=== PATIENT | male | born 1935 | race Caucasian/White ===

== ENCOUNTER 2017-10-29 19:23 | Inpatient (IN) ==
--- NOTE | 2017-10-29 20:35 | Emergency Department Note ---
Disposition Clinical Impression: Pneumonia Disposition: Admitted As Inpatient Condition: Fair Referrals: Verna Marie, [employer]ER [Primary Care Provider] - Forms: ED Satisfaction Letter Time of Disposition: 21:53 SOB HPI - General Chief Complaint: ED Shortness of Breath/Dyspnea Stated Complaint: "shallow breathing, low O2, very weak" Time Seen by Provider: 10/29/17 20:31 Source: patient Nursing Notes Reviewed: Yes Vital Signs Reviewed: Yes - History of Present Illness Patient is an 82-year-old male with past medical history of COPD, CVA, hypertension, TIA, CK D, type 2 diabetes mellitus that presents for shortness of breath for one day. Patient says that he has noticed an increase in coughing and shortness of breath starting earlier today. He admits to a clear productive cough. He normally has wheezing but says he denies any increase in wheezing recently. He admits to a fever of 101 earlier this afternoon. He denies any nausea, vomiting, diarrhea, or constipation. Patient uses oxygen at home only at night. He denies any swelling or chest pain. Patient also says that he slipped in the living room today and hit his head on the ground. He denies any loss of consciousness. Denies any headaches. Patient only on low dose aspirin for blood thinner. He denies any slurring of speech or focal deficits. - Related Data Home Medications Medication Instructions Recorded Confirmed Albuterol Sulfate [Albuterol 2 puff IH Q4HR PRN 04/01/15 04/12/17 Inhaler] Ascorbic Acid [Vitamin C] 500 mg PO QAM 04/01/15 04/12/17 Aspirin 81 mg PO QAM 04/01/15 04/12/17 Atorvastatin [Lipitor] 10 mg PO QPM 04/01/15 04/12/17 BuPROPion [Wellbutrin] 75 mg PO QAM 04/01/15 04/12/17 Cholecalciferol (Vitamin D3) 1,000 unit PO QAM 04/01/15 04/12/17 [Vitamin D] Citalopram [CeleXA] 20 mg PO QAM 04/01/15 04/12/17 Docusate [Colace] 100 mg PO QAM 04/01/15 04/12/17 Krill Oil 500 mg PO DAILY 04/01/15 04/12/17 Metoprolol [Lopressor] 25 mg PO QPM 04/01/15 04/12/17 Multivitamin/Iron/Folic Acid 1 each PO QAM 04/01/15 04/12/17 [Centrum Complete Multivit Tab] Omeprazole [PriLOSEC] 20 mg PO QAM 04/01/15 04/12/17 Saccharomyces Boulardii [Probiotic] 250 mg PO DAILY 04/01/15 04/12/17 Vitamin B Complex [B Complex] 1 each PO DAILY 04/01/15 04/12/17 Sitagliptin Phosphate [Januvia] 50 mg PO DAILY 04/12/17 04/12/17 Mometasone/Formoterol [Dulera 100 2 puff IH BID 04/13/17 04/13/17 Mcg/5 Mcg Inhaler] Previous Rx's Medication Instructions Recorded GuaiFENesin ER [Mucinex] 1,200 mg PO BID #20 tbbp.12hr 05/31/16 Ertapenem [INVanz] 500 mg IVPB DAILY #8 vial 04/19/17 Allergies Allergy/AdvReac Type Severity Reaction Status Date / Time No Known Allergies Allergy Verified 10/29/17 19:27 Review of Systems: As Per HPI Constitutional: Reports: fever. Denies: chills Cardiovascular: Denies: chest pain, palpitations, dyspnea on exertion, edema, syncope Respiratory: Reports: cough, dyspnea. Denies: wheezes Gastrointestinal: Denies: abdominal pain, nausea, vomiting, diarrhea, constipation, hematemesis, melena, hematochezia Past Medical History - Past Medical History Medical history: Reports: COPD, CVA, hyperlipidemia, hypertension, TIA, other Surgical history: Reports: appendectomy, cholecystectomy, other (POONAM Lobectomy) Psychiatric history: Reports: depression - Social History Smoking Status: Former smoker Smokeless Tobacco Status: No Alcohol use: Reports: none Drug use: Reports: none Physical Exam - General General appearance: alert, in no apparent distress - Head Head exam: atraumatic, normocephalic, normal inspection - Chest Chest inspection: Present: normal inspection, symmetric chest wall rise - Respiratory Respiratory exam: Present: normal lung sounds bilaterally. Absent: respiratory distress, wheezes - Cardiovascular Cardiovascular exam: Present: regular rate, normal rhythm, normal heart sounds, +S1, +S2. Absent: +S3, +S4 - Abdominal Exam Abdominal exam: Present: soft, Non-Tender, normal bowel sounds. Absent: tenderness, distention, guarding, rebound, rigidity - Extremities Exam Extremities exam: Present: normal inspection, full ROM, normal capillary refill. Absent: tenderness, pedal edema, calf tenderness - Neurological Exam Neurological exam: Present: alert, oriented X3, CN II-XII intact, reflexes normal. Absent: motor sensory deficit Course Course Narrative: Chest X-Ray 10/29/17 19:27 IMPRESSION: Stable right infrahilar consolidative and left base ill-defined opacities concerning for residual or recurrent pneumonia. D/ / Arben Wilson / Arben Wilson Interpreting Provider: Arben Wilson showed no acute changes from previous one. Tropnin not elevated. BMP only mildly elevated. Patient displayed no swelling on exam. CHF exacerbation unlikely. No wheezing was appreciated on exam so COPD exacerbation unlikely. Patient's chest x-ray shows concern for residual or recurrent pneumonia. He reported a fever of 101 earlier today. He has been coughing with productive sputum. White blood cell count was elevated at 25 and lactate was elevated at 2.5. Patient was last hospitalized for pneumonia in April of that showed positive culture for Proteus mirabilis. Patient had to be discharged with ertapenem. Sensitivities showed patient was sensitive to Zosyn. Given his chest x-ray results as well as an elevated white blood cell count and lactate patient will be given a dose of Zosyn and Levaquin for PNA. Sputum cultures have been ordered. Patient displayed no bruising and had. He denied any headaches. Cranial nerves II through XII were intact. No focal deficits were appreciated. Strength testing was normal. Spoke to hospitalist who agreed to admit the patient. Vital Signs Temperature 99.7 F H 10/29/17 19:25 Pulse Rate 107 10/29/17 19:25 Respiratory Rate 16 10/29/17 19:25 Blood Pressure 154/74 10/29/17 19:25 O2 Sat by Pulse Oximetry 98 10/29/17 19:25 Temperature 98.8 F 10/29/17 21:16 Pulse Rate 80 10/29/17 21:16 Respiratory Rate 22 10/29/17 21:16 Blood Pressure 172/85 10/29/17 21:16 O2 Sat by Pulse Oximetry 97 10/29/17 21:16 Oxygen Delivery Oxygen Delivery Nasal Cannula Shortness of Breath/Dyspnea - Lab Data Result diagrams: 10/29/17 20:37 10/29/17 20:37 Lab Results 10/29/17 10/29/17 10/29/17 Range/Units 20:37 20:37 20:37 WBC 23.5 H (4.3-11.1) K/mcL RBC 5.21 (4.19-5.50) M/mcL Hgb 16.9 (12.9-16.9) g/dL Hct 49.5 (37.5-50.1) % MCV 95.0 (83.0-100.0) fL MCH 32.4 (28.0-33.3) pg MCHC 34.1 (31.6-35.5) g/dL RDW 12.9 (11.5-14.5) % Plt Count 174 (140-400) K/mcL MPV 10.5 (9.4-12.4) fL Immature Gran % 0.6 (0-4) % Seg Neutrophils % 87.2 % Lymphocytes % 6.4 % Monocytes % 5.5 % Eosinophils % 0.1 % Basophils % 0.2 % Neutrophils # 20.5 H (1.6-8.9) K/mcL Lymphocytes # 1.5 (0.6-4.6) K/mcL Monocytes # 1.3 (0.0-1.3) K/mcL Eosinophils # 0.0 (0.0-0.6) K/mcL Basophils # 0.0 (0.0-0.2) K/mcL Sodium 139 (136-145) mEq/L Potassium 5.4 H (3.5-5.1) mEq/L Chloride 105 (98-107) mEq/L Carbon Dioxide 26 (23-29) mEq/L BUN 26 H (8-23) mg/dL Creatinine 2.17 H (0.70-1.30) mg/dL Est GFR ( Amer) 36 L (> 60) Est GFR (Non-Af Amer) 29 L (> 60) BUN/Creatinine Ratio 12 (6-26) Glucose 326 H (70-105) mg/dL Calculated Osmolality 305 H (280-300) Lactic Acid 2.5 H (0.5-2.2) mmol/L Calcium 9.5 (8.6-10.3) mg/dL Troponin I < 0.03 (< 0.04) ng/mL B-Natriuretic Peptide (Less than 100) pg/mL 10/29/17 Range/Units 20:37 WBC (4.3-11.1) K/mcL RBC (4.19-5.50) M/mcL Hgb (12.9-16.9) g/dL Hct (37.5-50.1) % MCV (83.0-100.0) fL MCH (28.0-33.3) pg MCHC (31.6-35.5) g/dL RDW (11.5-14.5) % Plt Count (140-400) K/mcL MPV (9.4-12.4) fL Immature Gran % (0-4) % Seg Neutrophils % % Lymphocytes % % Monocytes % % Eosinophils % % Basophils % % Neutrophils # (1.6-8.9) K/mcL Lymphocytes # (0.6-4.6) K/mcL Monocytes # (0.0-1.3) K/mcL Eosinophils # (0.0-0.6) K/mcL Basophils # (0.0-0.2) K/mcL Sodium (136-145) mEq/L Potassium (3.5-5.1) mEq/L Chloride (98-107) mEq/L Carbon Dioxide (23-29) mEq/L BUN (8-23) mg/dL Creatinine (0.70-1.30) mg/dL Est GFR ( Amer) (> 60) Est GFR (Non-Af Amer) (> 60) BUN/Creatinine Ratio (6-26) Glucose (70-105) mg/dL Calculated Osmolality (280-300) Lactic Acid (0.5-2.2) mmol/L Calcium (8.6-10.3) mg/dL Troponin I (< 0.04) ng/mL B-Natriuretic Peptide 130 H (Less than 100) pg/mL - EKG Data EKG attestation: Yes I reviewed and interpreted this EKG. EKG shows normal: Reports: sinus rhythm Rate: Reports: normal Rhythm: Reports: PAC's Orient/QRS: Reports: left axis deviation, RBBB
[2017-10-29 20:54] LABS: Basophils % 0.2 %; Eosinophils % 0.1 %; Hematocrit 49.5 % (37.5-50.1); Hemoglobin 16.9 g/dL (12.9-16.9); Immature Granulocytes % 0.6 % (0-4); Lymphocytes # 1.5 K/mcL (0.6-4.6); Lymphocytes % 6.4 %; Mean Corpuscular HGB Conc 34.1 g/dL (31.6-35.5); Mean Corpuscular Hemoglobin 32.4 pg (28.0-33.3); Mean Platelet Volume 10.5 fL (9.4-12.4); Monocytes # 1.3 K/mcL (0.0-1.3); Monocytes % 5.5 %; Neutrophils # 20.5 K/mcL (1.6-8.9); Platelet Count 174 K/mcL (140-400); Red Blood Count 5.21 M/mcL (4.19-5.50); Red Cell Distribution Width 12.9 % (11.5-14.5); Segmented Neutrophils % 87.2 %
[2017-10-29 21:13] LABS: BUN/Creatinine Ratio 12 (6-26); Blood Urea Nitrogen 26 mg/dL (8-23); Calcium 9.5 mg/dL (8.6-10.3); Carbon Dioxide 26 mEq/L (23-29); Chloride 105 mEq/L (98-107); Glucose 326 mg/dL (70-105); Osmolality,Calculated 305 (280-300); Potassium 5.4 mEq/L (3.5-5.1); Sodium 139 mEq/L (136-145); eGFR For African Americans 36 (> 60); eGFR For Non-African Americans 29 (> 60)
[2017-10-29 21:14] LABS: Troponin I < 0.03 ng/mL (< 0.04)
[2017-10-29] MEDS ORDERED: Piperacillin/Tazobactam 3.375 GM in 0.9 % Sodium Chloride Mini Bag 100 ML IVPB ONE (21:16)
[2017-10-29] MEDS ORDERED: Levofloxacin 750 MG/150 ML 750 MG/150 ML BAG IVPB ONE (21:18)
[2017-10-29] MEDS ORDERED: 0.9 % Sodium Chloride 1,000 ML IVC ONE (21:36)
[2017-10-29] MEDS ORDERED: Acetylcysteine 10% 2 ML INHSOL IH ONE (21:37)
--- NOTE | 2017-10-29 22:17 | Internal Med History&Physical ---
Date of Encounter: 10/29/17 Time of Encounter: 22:14 Assessment and Plan (1) Pneumonia Current visit: Yes Status: Acute Patient with the community acquired pneumonia was not hospital recently so for now we will cover with [facility] Qualifiers: Pneumonia type: due to unspecified organism Laterality: bilateral Lung location: lower lobe of lung Qualified Code(s): J18.1 - Lobar pneumonia, unspecified organism (2) COPD (chronic obstructive pulmonary disease) Current visit: No Status: Acute Chronic we will resume DuoNeb treatment no active wheezing at present Qualifiers: COPD type: COPD with acute exacerbation Qualified Code(s): J44.1 - Chronic obstructive pulmonary disease with (acute) exacerbation (3) History of lung cancer Current visit: No Status: Chronic (4) Hyperglycemia due to type 2 diabetes mellitus Current visit: No Status: Chronic Diabetes with hyperglycemia resume home medication and place on gentle hydration and sliding scale Qualifiers: Diabetes mellitus care home insulin use: without watermelon inspector use Qualified Code(s): E11.65 - Type 2 diabetes mellitus with hyperglycemia (5) HLD (hyperlipidemia) Current visit: No Status: Chronic Qualifiers: Hyperlipidemia type: mixed hyperlipidemia Qualified Code(s): E78.2 - Mixed hyperlipidemia (6) HTN (hypertension) Current visit: No Status: Chronic Chronic now well controlled we will resume home medication and make some adjustment Qualifiers: Hypertension type: essential hypertension Qualified Code(s): I10 - Essential (primary) hypertension Internal Medicine - H&P: HPI Chief complaint: sob and productive cough Admitted From: Emergency Dept Plans for Post Hospital Care: Home History of present illness: Mr. Grider is a 82 year old male Patient with history of COPD, CVA, diabetes, high cholesterol, hypertension, TIA , CK D, lung cancer and smoking history. Patient had recent admission with the pneumonia and respiratory failure. Patient presented with 1 day of increased shortness of breath , productive cough fever up to 101 and came into the emergency room. Her chest x-ray suggestive of right residual infiltrate and then new left basilar infiltrate WBC was 23,000 patient appears comfortable been admitted for treatment of pneumonia. Hemodynamically stable no chest pain also been having increased wheezing Past Med Surg Social Fam HX - Past Medical History Medical history: COPD, CVA, hyperlipidemia, hypertension, TIA, other Psychiatric history: depression - Past Surgical History Surgical History: appendectomy, cholecystectomy, other (POONAM Lobectomy) - Social History Smoking Status: Former smoker Smokeless Tobacco Status: No Alcohol use: none Drug use: none - Family History Mother Living Status: Hx Family Cardiac Disorders: No Hx Family Respiratory Disorders: No Hx Family Cancer: Yes (Bladder) Hx Family GI Disorders: No Hx Family Endocrine Disorder: No Hx Family Neuromuscular Disorders: No Hx Family Neurologic Disorders: No Hx Family HEENT Disorders: No Hx Family Autoimmune Disorders: No Father Adopted: No Family Member Ethnicity: Non- Living Status: Hx Family Cardiac Disorders: No Hx Family Respiratory Disorders: No Hx Family Cancer: Yes (lung) Hx Family GI Disorders: No Hx Family Endocrine Disorder: No Hx Family Neuromuscular Disorders: No Hx Family Neurologic Disorders: No Hx Family HEENT Disorders: No Hx Family Autoimmune Disorders: No Internal Medicine - H&P: Meds Albuterol Sulfate [Albuterol Inhaler] 2 puff IH Q4HR PRN 04/01/15 [History] Ascorbic Acid [Vitamin C] 500 mg PO QAM 04/01/15 [History] Aspirin 81 mg PO QAM 04/01/15 [History] Atorvastatin [Lipitor] 10 mg PO QPM 04/01/15 [History] BuPROPion [Wellbutrin] 75 mg PO QAM 04/01/15 [History] Cholecalciferol (Vitamin D3) [Vitamin D] 1,000 unit PO QAM 04/01/15 [History] Citalopram [CeleXA] 20 mg PO QAM 04/01/15 [History] Docusate [Colace] 100 mg PO QAM 04/01/15 [History] Krill Oil 500 mg PO DAILY 04/01/15 [History] Metoprolol [Lopressor] 25 mg PO QPM 04/01/15 [History] Multivitamin/Iron/Folic Acid [Centrum Complete Multivit Tab] 1 each PO QAM 04/01 [History] Omeprazole [PriLOSEC] 20 mg PO QAM 04/01/15 [History] Saccharomyces Boulardii [Probiotic] 250 mg PO DAILY 04/01/15 [History] Vitamin B Complex [B Complex] 1 each PO DAILY 04/01/15 [History] GuaiFENesin ER [Mucinex] 1,200 mg PO BID #20 tbbp.12hr 05/31/16 [Rx] Sitagliptin Phosphate [Januvia] 50 mg PO DAILY 04/12/17 [History] Mometasone/Formoterol [Dulera 100 Mcg/5 Mcg Inhaler] 2 puff IH BID 04/13/17 [ History] Ertapenem [INVanz] 500 mg IVPB DAILY #8 vial 04/19/17 [Rx] 3 Allergy/AdvReac Type Severity Reaction Status Date / Time No Known Allergies Allergy Verified 10/29/17 19:27 All Systems PM: A 10-system review of systems was performed and is negative for pertinent findings except as documented above in the HPI. - Constitutional Constitutional: as per HPI - EENT Eyes: no change in vision, no discharge, no pain, no photophobia Ears: no ear discharge, no ear pain, no tinnitus Nose, mouth and throat: no dysphagia, no nasal discharge, no neck pain, no sore throat - Cardiovascular Cardiovascular ROS IM: dyspnea, dyspnea on exertion - Respiratory Respiratory: cough, dyspnea, dyspnea on exertion, wheezing - Gastrointestinal Gastrointestinal: no abdominal pain, no diarrhea, no hematemesis, no hematochezia, no melena, no nausea, no vomiting - Musculoskeletal Musculoskeletal ROS IM: no numbness, no tingling - Constitutional Vitals: Temp Pulse Resp BP Pulse Ox 98.8 F 80 22 172/85 97 10/29/17 21:16 10/29/17 21:16 10/29/17 21:16 10/29/17 21:16 10/29/17 21:16 General appearance: Present: mild distress - Eye Eye exam: Present: PERRL, conjuntiva pink, sclera anicteric Pupils: Present: PERRL - Respiratory Respiratory exam: Present: decreased breath sounds, prolonged expiratory phase, wheezes - Cardiovascular Cardiovascular exam: Present: RRR, +S1, +S2. Absent: diastolic murmur, gallop, rubs, systolic murmur - GI/Abdominal GI/Abdominal exam: Present: normal bowel sounds, soft, no peritoneal signs. Absent: distended, tenderness - Extremities Exam Extremities exam: Present: warm, radial pulses palpable and symmetrical. Absent : calf tenderness, cyanotic, pedal edema Internal Med - H&P Results - Labs CBC & Chem 7: 10/29/17 20:37 10/29/17 20:37 Labs: Short CBC 10/29/17 Range/Units 20:37 WBC 23.5 H (4.3-11.1) K/mcL Hgb 16.9 (12.9-16.9) g/dL Hct 49.5 (37.5-50.1) % Plt Count 174 (140-400) K/mcL Neutrophils # 20.5 H (1.6-8.9) K/mcL BMP 10/29/17 20:37 Sodium 139 Potassium 5.4 H Chloride 105 Carbon Dioxide 26 BUN 26 H Creatinine 2.17 H Glucose 326 H Calcium 9.5 Cardiac Enzymes 10/29/17 Range/Units 20:37 Troponin I < 0.03 (< 0.04) ng/mL - Impressions ITS Impressions Chest X-Ray 10/29/17 19:27 IMPRESSION: Stable right infrahilar consolidative and left base ill-defined opacities concerning for residual or recurrent pneumonia. D/ / Arben Wilson / Arben Wilson Interpreting Provider: Arben Wilson
[2017-10-29] MEDS ORDERED: traMADol 50 MG TABLET PO PRN (22:23)
[2017-10-29] MEDS ORDERED: Acetaminophen 325 MG TABLET PO PRN (22:23)
[2017-10-29] MEDS ORDERED: Naloxone 0.4 MG/ML INJ IVP PRN (22:23)
[2017-10-29] MEDS ORDERED: 0.9 % Sodium Chloride 1,000 ML IVC SCH (22:30)
--- NOTE | 2017-10-29 22:44 | Emergency Department Note ---
Disposition Clinical Impression: Pneumonia Qualifiers: Pneumonia type: due to unspecified organism Laterality: bilateral Lung location : lower lobe of lung Qualified Code(s): J18.1 - Lobar pneumonia, unspecified organism Disposition: Admitted As Inpatient Condition: Fair General Adult HPI - General Chief complaint: ED Shortness of Breath/Dyspnea Stated complaint: "shallow breathing, low O2, very weak" Time Seen by Provider: 10/29/17 20:31 Source: patient Nursing Notes Reviewed: Yes Vital Signs Reviewed: Yes - History of Present Illness Pain Scale: 0 - Related Data Home Medications Medication Instructions Recorded Confirmed Albuterol Sulfate [Albuterol 2 puff IH Q4HR PRN 04/01/15 04/12/17 Inhaler] Ascorbic Acid [Vitamin C] 500 mg PO QAM 04/01/15 04/12/17 Aspirin 81 mg PO QAM 04/01/15 04/12/17 Atorvastatin [Lipitor] 10 mg PO QPM 04/01/15 04/12/17 BuPROPion [Wellbutrin] 75 mg PO QAM 04/01/15 04/12/17 Cholecalciferol (Vitamin D3) 1,000 unit PO QAM 04/01/15 04/12/17 [Vitamin D] Citalopram [CeleXA] 20 mg PO QAM 04/01/15 04/12/17 Docusate [Colace] 100 mg PO QAM 04/01/15 04/12/17 Krill Oil 500 mg PO DAILY 04/01/15 04/12/17 Metoprolol [Lopressor] 25 mg PO QPM 04/01/15 04/12/17 Multivitamin/Iron/Folic Acid 1 each PO QAM 04/01/15 04/12/17 [Centrum Complete Multivit Tab] Omeprazole [PriLOSEC] 20 mg PO QAM 04/01/15 04/12/17 Saccharomyces Boulardii [Probiotic] 250 mg PO DAILY 04/01/15 04/12/17 Vitamin B Complex [B Complex] 1 each PO DAILY 04/01/15 04/12/17 Sitagliptin Phosphate [Januvia] 50 mg PO DAILY 04/12/17 04/12/17 Mometasone/Formoterol [Dulera 100 2 puff IH BID 04/13/17 04/13/17 Mcg/5 Mcg Inhaler] Previous Rx's Medication Instructions Recorded GuaiFENesin ER [Mucinex] 1,200 mg PO BID #20 tbbp.12hr 05/31/16 Ertapenem [INVanz] 500 mg IVPB DAILY #8 vial 04/19/17 Allergies Allergy/AdvReac Type Severity Reaction Status Date / Time No Known Allergies Allergy Verified 10/29/17 19:27 Constitutional: Reports: fever. Denies: chills Cardiovascular: Denies: chest pain, palpitations, dyspnea on exertion, edema, syncope Respiratory: Reports: cough, dyspnea. Denies: wheezes Gastrointestinal: Denies: abdominal pain, nausea, vomiting, diarrhea, constipation, hematemesis, melena, hematochezia Past Medical History - Past Medical History Medical history: Reports: COPD, CVA, hyperlipidemia, hypertension, TIA, other Surgical history: Reports: appendectomy, cholecystectomy, other (POONAM Lobectomy) Psychiatric history: Reports: depression - Social History Smoking Status: Former smoker Smokeless Tobacco Status: No Alcohol use: Reports: none Drug use: Reports: none Physical Exam - General General appearance: alert, in no apparent distress Course Vital Signs Temperature 99.7 F H 10/29/17 19:25 Pulse Rate 107 10/29/17 19:25 Respiratory Rate 16 10/29/17 19:25 Blood Pressure 154/74 10/29/17 19:25 O2 Sat by Pulse Oximetry 98 10/29/17 19:25 Temperature 98.8 F 10/29/17 21:16 Pulse Rate 80 10/29/17 21:16 Respiratory Rate 22 10/29/17 21:16 Blood Pressure 172/85 10/29/17 21:16 O2 Sat by Pulse Oximetry 97 10/29/17 21:16 Oxygen Delivery Oxygen Delivery Nasal Cannula Medical Decision Making - Lab Data Result diagrams: 10/29/17 20:37 10/29/17 20:37 Lab Results 10/29/17 10/29/17 10/29/17 Range/Units 20:37 20:37 20:37 WBC 23.5 H (4.3-11.1) K/mcL RBC 5.21 (4.19-5.50) M/mcL Hgb 16.9 (12.9-16.9) g/dL Hct 49.5 (37.5-50.1) % MCV 95.0 (83.0-100.0) fL MCH 32.4 (28.0-33.3) pg MCHC 34.1 (31.6-35.5) g/dL RDW 12.9 (11.5-14.5) % Plt Count 174 (140-400) K/mcL MPV 10.5 (9.4-12.4) fL Immature Gran % 0.6 (0-4) % Seg Neutrophils % 87.2 % Lymphocytes % 6.4 % Monocytes % 5.5 % Eosinophils % 0.1 % Basophils % 0.2 % Neutrophils # 20.5 H (1.6-8.9) K/mcL Lymphocytes # 1.5 (0.6-4.6) K/mcL Monocytes # 1.3 (0.0-1.3) K/mcL Eosinophils # 0.0 (0.0-0.6) K/mcL Basophils # 0.0 (0.0-0.2) K/mcL Sodium 139 (136-145) mEq/L Potassium 5.4 H (3.5-5.1) mEq/L Chloride 105 (98-107) mEq/L Carbon Dioxide 26 (23-29) mEq/L BUN 26 H (8-23) mg/dL Creatinine 2.17 H (0.70-1.30) mg/dL Est GFR ( Amer) 36 L (> 60) Est GFR (Non-Af Amer) 29 L (> 60) BUN/Creatinine Ratio 12 (6-26) Glucose 326 H (70-105) mg/dL Calculated Osmolality 305 H (280-300) Lactic Acid 2.5 H (0.5-2.2) mmol/L Calcium 9.5 (8.6-10.3) mg/dL Troponin I < 0.03 (< 0.04) ng/mL B-Natriuretic Peptide (Less than 100) pg/mL 10/29/17 Range/Units 20:37 WBC (4.3-11.1) K/mcL RBC (4.19-5.50) M/mcL Hgb (12.9-16.9) g/dL Hct (37.5-50.1) % MCV (83.0-100.0) fL MCH (28.0-33.3) pg MCHC (31.6-35.5) g/dL RDW (11.5-14.5) % Plt Count (140-400) K/mcL MPV (9.4-12.4) fL Immature Gran % (0-4) % Seg Neutrophils % % Lymphocytes % % Monocytes % % Eosinophils % % Basophils % % Neutrophils # (1.6-8.9) K/mcL Lymphocytes # (0.6-4.6) K/mcL Monocytes # (0.0-1.3) K/mcL Eosinophils # (0.0-0.6) K/mcL Basophils # (0.0-0.2) K/mcL Sodium (136-145) mEq/L Potassium (3.5-5.1) mEq/L Chloride (98-107) mEq/L Carbon Dioxide (23-29) mEq/L BUN (8-23) mg/dL Creatinine (0.70-1.30) mg/dL Est GFR ( Amer) (> 60) Est GFR (Non-Af Amer) (> 60) BUN/Creatinine Ratio (6-26) Glucose (70-105) mg/dL Calculated Osmolality (280-300) Lactic Acid (0.5-2.2) mmol/L Calcium (8.6-10.3) mg/dL Troponin I (< 0.04) ng/mL B-Natriuretic Peptide 130 H (Less than 100) pg/mL Attestation Statement - Attestation Attestation: I examined this patient and my medical decision-making was reviewed with the Resident Physician. I agree with the documented findings, disposition and treatment plan as described except to the extent set forth below. 82-year-old male brought to the ED because of generalized weakness, fever, cough and dyspnea. Symptoms have been evolved into the day today. Weakness is worsened to the point recent falling. Dyspnea his been an issue but not progressing. He was admitted to the hospital in April and found to have Proteus in his sputum. This was sensitive only to IV medications including Zosyn and ertrepenam. He was discharged home for hospital with a PICC line and given ertapenem. He has done well since that time. He denies vomiting or diarrhea. No abdominal pain. No chest pain. Pleasant elderly male in no apparent distress. Oropharynx clear moist membranes slightly dry. Neck is supple. Chest exam with diminished breath sounds bilaterally. No focal consolidation is appreciated. Chest wall nontender. Abdomen soft nondistended nontender. Extremities warm and dry. Chest x-ray consistent with bilateral infiltrates. Leukocytosis with white count 23,000. Given his evolving weakness he will be admitted to the hospital on IV . antibioticsHe is given initial dose of Zosyn in the emergency department.
[2017-10-30 04:22] LABS: Hematocrit 45.3 % (37.5-50.1); Mean Corpuscular HGB Conc 33.8 g/dL (31.6-35.5); Mean Corpuscular Hemoglobin 32.1 pg (28.0-33.3); Mean Platelet Volume 10.2 fL (9.4-12.4); Platelet Count 186 K/mcL (140-400); Red Blood Count 4.77 M/mcL (4.19-5.50); Red Cell Distribution Width 12.9 % (11.5-14.5)
[2017-10-30 04:25] LABS: Hemoglobin 15.3 g/dL (12.9-16.9)
[2017-10-30 04:45] LABS: Albumin/Globulin Ratio 1.4 (1.1-2.2); Bilirubin,Total 0.7 mg/dL (0.3-1.0); Calcium 8.9 mg/dL (8.6-10.3); Chol/HDL Ratio 2.6 (0-4.9); Globulin 2.8 g/dL (2.4-3.5); Magnesium 1.7 mg/dL (1.6-2.6); Potassium 4.6 mEq/L (3.5-5.1); Total Protein 6.8 g/dL (6.4-8.9)
[2017-10-30] MEDS: *HR* Enoxaparin 40 MG/0.4 ML SYRINGE SQ SCH (06:35)
[2017-10-30] MEDS: Budesonide/Formoterol 80/4.5 MDI IH SCH ×2 (07:29→19:25)
[2017-10-30] MEDS ORDERED: KRILL OIL 500 MG PO SCH (09:00)
[2017-10-30] MEDS ORDERED: D5% in Water 1,000 ML IVC PRN (09:08)
[2017-10-30] MEDS ORDERED: *HR* Dextrose 50 % in Water (Syg) 50 ML SYRINGE IVP PRN (09:08)
[2017-10-30] MEDS ORDERED: Dextrose Gel 15 GM/37.5 ML TUBE PO PRN ×2 (09:08)
[2017-10-30] MEDS: Piperacillin/Tazobactam 3.375 GM in 0.9 % Sodium Chloride Mini Bag 100 ML IVPB SCH ×2 (09:12→15:37)
[2017-10-30] MEDS: Lactobacillus 1 EACH CAP.SPRINK PO SCH (09:13)
[2017-10-30] MEDS: Vitamin B Complex/Vit C/Vit E 1 EACH TABLET PO SCH (09:13)
[2017-10-30] MEDS: Aspirin 81 MG TAB.CHEW PO SCH (09:14)
[2017-10-30] MEDS: *HR* SitaGLIPtin 25 MG TABLET PO SCH (09:14)
[2017-10-30] MEDS: Ascorbic Acid 500 MG TABLET PO SCH (09:14)
[2017-10-30] MEDS: Multivit/Ca/Min/Fe/FA 1 TAB TABLET PO SCH (09:14)
[2017-10-30] MEDS: Cholecalciferol (D-3) 1,000 UNIT TABLET PO SCH (09:14)
[2017-10-30 09:27] LABS: Estimated Average Glucose 177 mg/dl; Hemoglobin A1C 7.8 %
--- NOTE | 2017-10-30 11:38 | Internal Med Progress Note ---
Date of Encounter: 10/30/17 Time of Encounter: 11:20 - Assessment and plan (1) Community acquired pneumonia Current Visit: Yes Status: Acute Assessment and plan: Patient was admitted for pneumonia, his last admission was May 2017. continue zosyn and levofloxacin will DC IV fluids He is currently on 4 L nasal cannula oxygen, weaning oxygen Possible discharge tomorrow if able to wean oxygen Qualifiers: Laterality: unspecified laterality Qualified Code(s): J18.9 - Pneumonia, unspecified organism (2) COPD (chronic obstructive pulmonary disease) Current Visit: Yes Status: Chronic Assessment and plan: COPD on 2 L nasal cannula at night, quitted smoking 10 years ago. No signs for acute exacerbation Qualifiers: COPD type: COPD with acute exacerbation Qualified Code(s): J44.1 - Chronic obstructive pulmonary disease with (acute) exacerbation (3) CKD (chronic kidney disease), stage III Current Visit: Yes Status: Chronic Assessment and plan: CK D stages 3 creatinine stable (4) Hyperglycemia due to type 2 diabetes mellitus Current Visit: Yes Status: Chronic Assessment and plan: Diabetes type 2 we will continue home medication and on sliding scale Qualifiers: Diabetes mellitus usp insulin use: without usp use Qualified Code(s): E11.65 - Type 2 diabetes mellitus with hyperglycemia (5) History of lung cancer Current Visit: No Status: Chronic (6) History of CVA (cerebrovascular accident) Current Visit: Yes Status: Chronic - Time Spent With Patient Greater than 35 minutes - Subjective Interval history: Patient with history of COPD, CVA, diabetes, high cholesterol, hypertension, TIA , CK D, lung cancer and smoking history. last admission was 04/2017, Patient presented with 1 day of increased shortness of breath , productive cough fever up to 101 and came into the emergency room. Her chest x-ray suggestive of right residual infiltrate and then new left basilar infiltrate WBC was 23 ,000 patient appears comfortable been admitted for treatment of pneumonia. Hemodynamically stable no chest pain also been having increased wheezing. Patient was admitted for pneumonia, he was on 2 L NC at night at home for COPD, now he is on 4 L NC Patient is doing better, afebrile, WBC trending down, he feels better with shortness of breath. Patient lives at home with his pretty much homebound. We will consult PT and OT - Constitutional Vitals: Temp Pulse Resp BP Pulse Ox 98.3 F 62 20 136/84 98 10/30/17 10:50 10/30/17 10:50 10/30/17 10:50 10/30/17 10:50 10/30/17 10:50 General appearance: Present: mild distress, A&O X 3, pleasant Exam: CONSTITUTIONAL: patient appears as an age appropriate male in no acute distress. EYES Clear sclerae, bilateral pupils are equal, reactive to light. EMOI. RESPIRATORY: No accessory muscle use, bilateral reduced BS, scant wheezing, no crackles/rales. CARDIOVASCULAR: Regular heart rate, normal S1 and S2, no murmurs GASTROINTESTINAL: bowel sounds present, soft, no tenderness. MUSCULOSKELETAL: Joints in normal range of motion, no clubbing, no edema, no cyanosis. Bilateral peripheral pulses 2+. NEUROLOGIC: CN II to XII are grossly intact, no focal neurological deficit. Internal Medicine: Result - Labs CBC & Chem 7: 10/30/17 04:04 10/30/17 04:04 Labs: Short CBC 10/30/17 Range/Units 04:04 WBC 18.3 H (4.3-11.1) K/mcL Hgb 15.3 D (12.9-16.9) g/dL Hct 45.3 (37.5-50.1) % Plt Count 186 (140-400) K/mcL BMP 10/30/17 04:04 Sodium 142 Potassium 4.6 Chloride 107 Carbon Dioxide 26 BUN 24 H Creatinine 1.97 H Glucose 155 H Calcium 8.9 Liver Function 10/30/17 Range/Units 04:04 Total Bilirubin 0.7 (0.3-1.0) mg/dL AST 15 (13-39) Units/L ALT 18 (7-52) Units/L Alkaline Phosphatase 73 (34-104) Units/L Albumin 4.0 (3.5-5.7) g/dL Consult Discharge Plan - Plan Referrals: Verna Marie, NIGHT ORDER SELECTOR [Primary Care Provider] -
[2017-10-30] MEDS: Insulin LISPRO 300 UNITS/3 ML VIAL SQ SCH ×3 (12:57→21:00)
[2017-10-30] MEDS ORDERED: Levofloxacin 750 MG/150 ML 750 MG/150 ML BAG IVPB SCH ×2 (21:00)
[2017-10-31] MEDS: Piperacillin/Tazobactam 3.375 GM in 0.9 % Sodium Chloride Mini Bag 100 ML IVPB SCH ×4 (00:30→23:45)
[2017-10-31 06:15] LABS: Basophils % 0.2 %; Eosinophils # 0.1 K/mcL (0.0-0.6); Eosinophils % 0.7 %; Hematocrit 42.8 % (37.5-50.1); Hemoglobin 14.4 g/dL (12.9-16.9); Immature Granulocytes % 0.5 % (0-4); Lymphocytes # 1.6 K/mcL (0.6-4.6); Lymphocytes % 11.9 %; Mean Corpuscular HGB Conc 33.6 g/dL (31.6-35.5); Mean Corpuscular Hemoglobin 32.1 pg (28.0-33.3); Mean Corpuscular Volume 95.3 fL (83.0-100.0); Mean Platelet Volume 10.6 fL (9.4-12.4); Monocytes # 1.1 K/mcL (0.0-1.3); Monocytes % 7.9 %; Neutrophils # 10.4 K/mcL (1.6-8.9); Platelet Count 161 K/mcL (140-400); Red Blood Count 4.49 M/mcL (4.19-5.50); Red Cell Distribution Width 12.9 % (11.5-14.5); Segmented Neutrophils % 78.8 %
[2017-10-31] MEDS: *HR* Enoxaparin 40 MG/0.4 ML SYRINGE SQ SCH (06:21)
[2017-10-31 06:34] LABS: Calcium 9.1 mg/dL (8.6-10.3); Magnesium 1.7 mg/dL (1.6-2.6); Potassium 4.6 mEq/L (3.5-5.1)
[2017-10-31] MEDS: Budesonide/Formoterol 80/4.5 MDI IH SCH ×2 (07:51→20:31)
[2017-10-31] MEDS: Insulin LISPRO 300 UNITS/3 ML VIAL SQ SCH ×4 (08:02→20:56)
[2017-10-31] MEDS: Cholecalciferol (D-3) 1,000 UNIT TABLET PO SCH (08:45)
[2017-10-31] MEDS: Aspirin 81 MG TAB.CHEW PO SCH (08:45)
[2017-10-31] MEDS: *HR* SitaGLIPtin 25 MG TABLET PO SCH (08:45)
[2017-10-31] MEDS: Ascorbic Acid 500 MG TABLET PO SCH (08:45)
[2017-10-31] MEDS: Vitamin B Complex/Vit C/Vit E 1 EACH TABLET PO SCH (08:46)
[2017-10-31] MEDS: Lactobacillus 1 EACH CAP.SPRINK PO SCH (08:46)
[2017-10-31] MEDS: Multivit/Ca/Min/Fe/FA 1 TAB TABLET PO SCH (08:46)
[2017-10-31] MEDS ORDERED: Ondansetron 4 MG/2 ML VIAL IVP PRN (10:38)
--- NOTE | 2017-10-31 17:27 | Internal Med Progress Note ---
Date of Encounter: 10/31/17 Time of Encounter: 11:00 - Assessment and plan (1) Community acquired pneumonia Current Visit: Yes Status: Acute Assessment and plan: Leukocytosis improving and patient afebrile on day 3 of 7 on IV Zosyn/Levaquin Continue current medical management Qualifiers: Laterality: unspecified laterality Qualified Code(s): J18.9 - Pneumonia, unspecified organism (2) COPD (chronic obstructive pulmonary disease) Current Visit: Yes Status: Chronic Assessment and plan: Patient with no audible wheezing on exam Continue home dose of Symbicort Qualifiers: COPD type: COPD with acute exacerbation Qualified Code(s): J44.1 - Chronic obstructive pulmonary disease with (acute) exacerbation (3) CKD (chronic kidney disease), stage III Current Visit: Yes Status: Chronic Assessment and plan: Stable; creatinine at baseline Continue to monitor (4) DMII (diabetes mellitus, type 2) Current Visit: No Status: Chronic Assessment and plan: Blood glucose controlled; continue sliding scale insulin Qualifiers: Diabetes mellitus intermediate accountant insulin use: unspecified jail insulin use status Qualified Code(s): E11.9 - Type 2 diabetes mellitus without complications (5) GERD (gastroesophageal reflux disease) Current Visit: No Status: Chronic Assessment and plan: Continue home dose of PPI Qualifiers: Esophagitis presence: esophagitis presence not specified Qualified Code(s) : K21.9 - Gastro-esophageal reflux disease without esophagitis (6) HLD (hyperlipidemia) Current Visit: No Status: Chronic Assessment and plan: Continue statin Qualifiers: Hyperlipidemia type: mixed hyperlipidemia Qualified Code(s): E78.2 - Mixed hyperlipidemia (7) HTN (hypertension) Current Visit: No Status: Chronic Assessment and plan: Controlled; continue beta ritchie Qualifiers: Hypertension type: essential hypertension Qualified Code(s): I10 - Essential (primary) hypertension (8) DVT prophylaxis Current Visit: No Status: Acute Assessment and plan: Subcutaneous Lovenox - Time Spent With Patient Total time spent is greater than 50% in coordination of care (as documented) at patient's floor/unit and/or counseling patient: - Subjective Interval history: Patient with improving leukocytosis with treatment for pneumonia on IV Zosyn/ Levaquin PT/OT recommendations for SNF placement - Constitutional Vitals: Temp Pulse Resp BP Pulse Ox 97.7 F 83 20 139/57 97 10/31/17 15:26 10/31/17 15:26 10/31/17 15:26 10/31/17 15:26 10/31/17 15:26 General appearance: Present: mild distress, A&O X 3, pleasant, no acute distress - Respiratory Respiratory exam: Present: CTAB. Absent: accessory muscle use, rales, rhonchi, wheezes - Cardiovascular Cardiovascular exam: Present: RRR, +S1, +S2. Absent: diastolic murmur, gallop, rubs, systolic murmur - GI/Abdominal GI/Abdominal exam: Present: normal bowel sounds, soft, no peritoneal signs. Absent: distended, tenderness Internal Medicine: Result - Labs CBC & Chem 7: 10/31/17 05:41 10/31/17 05:41 Labs: Short CBC 10/31/17 Range/Units 05:41 WBC 13.2 H (4.3-11.1) K/mcL Hgb 14.4 (12.9-16.9) g/dL Hct 42.8 (37.5-50.1) % Plt Count 161 (140-400) K/mcL Neutrophils # 10.4 H (1.6-8.9) K/mcL BMP 10/31/17 05:41 Sodium 142 Potassium 4.6 Chloride 110 H Carbon Dioxide 27 BUN 21 Creatinine 2.00 H Glucose 119 H Calcium 9.1 Consult Discharge Plan - Plan Referrals: Verna Marie, BATCH ATTENDANT [Primary Care Provider] -
[2017-11-01] MEDS: *HR* Enoxaparin 40 MG/0.4 ML SYRINGE SQ SCH (05:44)
[2017-11-01] MEDS: Insulin LISPRO 300 UNITS/3 ML VIAL SQ SCH ×4 (07:01→20:42)
[2017-11-01] MEDS: Budesonide/Formoterol 80/4.5 MDI IH SCH ×2 (07:31→21:36)
[2017-11-01 08:45] LABS: Calcium 9.5 mg/dL (8.6-10.3); Potassium 4.3 mEq/L (3.5-5.1)
[2017-11-01] MEDS: Piperacillin/Tazobactam 3.375 GM in 0.9 % Sodium Chloride Mini Bag 100 ML IVPB SCH ×3 (08:54→23:48)
[2017-11-01] MEDS: Vitamin B Complex/Vit C/Vit E 1 EACH TABLET PO SCH (08:55)
[2017-11-01] MEDS: Multivit/Ca/Min/Fe/FA 1 TAB TABLET PO SCH (08:55)
[2017-11-01] MEDS: Ascorbic Acid 500 MG TABLET PO SCH (08:55)
[2017-11-01] MEDS: Cholecalciferol (D-3) 1,000 UNIT TABLET PO SCH (08:55)
[2017-11-01] MEDS: Lactobacillus 1 EACH CAP.SPRINK PO SCH (08:55)
[2017-11-01] MEDS: Aspirin 81 MG TAB.CHEW PO SCH (08:55)
[2017-11-01 08:58] LABS: Basophils % 0.3 %; Eosinophils # 0.1 K/mcL (0.0-0.6); Hematocrit 47.1 % (37.5-50.1); Hemoglobin 15.8 g/dL (12.9-16.9); Lymphocytes # 1.9 K/mcL (0.6-4.6); Lymphocytes % 15.3 %; Mean Corpuscular HGB Conc 33.5 g/dL (31.6-35.5); Mean Corpuscular Hemoglobin 32.3 pg (28.0-33.3); Mean Corpuscular Volume 96.3 fL (83.0-100.0); Mean Platelet Volume 10.6 fL (9.4-12.4); Monocytes # 0.8 K/mcL (0.0-1.3); Monocytes % 6.7 %; Neutrophils # 9.4 K/mcL (1.6-8.9); Platelet Count 169 K/mcL (140-400); Red Blood Count 4.89 M/mcL (4.19-5.50); Red Cell Distribution Width 12.8 % (11.5-14.5); Segmented Neutrophils % 75.7 %
[2017-11-01] MEDS: *HR* SitaGLIPtin 25 MG TABLET PO SCH (09:00)
[2017-11-01] MEDS ORDERED: levoFLOXacin 750 MG TABLET PO SCH (17:00)
--- NOTE | 2017-11-01 19:10 | Internal Med Progress Note ---
Date of Encounter: 11/01/17 Time of Encounter: 11:00 - Assessment and plan (1) Community acquired pneumonia Current Visit: Yes Status: Acute Assessment and plan: Leukocytosis improving and patient afebrile on day 4 of 7 on IV Zosyn/Levaquin Continue current medical management Qualifiers: Laterality: unspecified laterality Qualified Code(s): J18.9 - Pneumonia, unspecified organism (2) COPD (chronic obstructive pulmonary disease) Current Visit: Yes Status: Chronic Assessment and plan: Patient with no audible wheezing on exam Continue home dose of Symbicort Qualifiers: COPD type: COPD with acute exacerbation Qualified Code(s): J44.1 - Chronic obstructive pulmonary disease with (acute) exacerbation (3) CKD (chronic kidney disease), stage III Current Visit: Yes Status: Chronic Assessment and plan: Stable; creatinine at baseline Continue to monitor (4) DMII (diabetes mellitus, type 2) Current Visit: No Status: Chronic Assessment and plan: Blood glucose controlled; continue sliding scale insulin Qualifiers: Diabetes mellitus keno terminal operator insulin use: unspecified correction insulin use status Qualified Code(s): E11.9 - Type 2 diabetes mellitus without complications (5) GERD (gastroesophageal reflux disease) Current Visit: No Status: Chronic Assessment and plan: Continue home dose of PPI Qualifiers: Esophagitis presence: esophagitis presence not specified Qualified Code(s) : K21.9 - Gastro-esophageal reflux disease without esophagitis (6) HLD (hyperlipidemia) Current Visit: No Status: Chronic Assessment and plan: Continue statin Qualifiers: Hyperlipidemia type: mixed hyperlipidemia Qualified Code(s): E78.2 - Mixed hyperlipidemia (7) HTN (hypertension) Current Visit: No Status: Chronic Assessment and plan: Controlled; continue beta ritchie Qualifiers: Hypertension type: essential hypertension Qualified Code(s): I10 - Essential (primary) hypertension (8) DVT prophylaxis Current Visit: No Status: Acute Assessment and plan: Subcutaneous Lovenox - Time Spent With Patient Total time spent is greater than 50% in coordination of care (as documented) at patient's floor/unit and/or counseling patient: - Subjective Interval history: Patient with improving leukocytosis with treatment for pneumonia on IV Zosyn/ Levaquin PT/OT recommendations for SNF placement Awaiting bed for placement - Constitutional Vitals: Temp Pulse Resp BP Pulse Ox 98 F 64 20 138/70 98 11/01/17 15:10 11/01/17 15:10 11/01/17 15:10 11/01/17 15:10 11/01/17 15:10 General appearance: Present: mild distress, A&O X 3, pleasant, no acute distress - Respiratory Respiratory exam: Present: CTAB. Absent: accessory muscle use, rales, rhonchi, wheezes - Cardiovascular Cardiovascular exam: Present: RRR, +S1, +S2. Absent: diastolic murmur, gallop, rubs, systolic murmur Internal Medicine: Result - Labs CBC & Chem 7: 11/01/17 08:13 11/01/17 08:13 Labs: Short CBC 11/01/17 Range/Units 08:13 WBC 12.5 H (4.3-11.1) K/mcL Hgb 15.8 (12.9-16.9) g/dL Hct 47.1 (37.5-50.1) % Plt Count 169 (140-400) K/mcL Neutrophils # 9.4 H (1.6-8.9) K/mcL BMP 11/01/17 08:13 Sodium 142 Potassium 4.3 Chloride 108 H Carbon Dioxide 27 BUN 22 Creatinine 1.95 H Glucose 111 H Calcium 9.5 - Impressions Impressions Head CT 11/01/17 11:30 IMPRESSION: No acute intracranial abnormality. Diffuse atrophic changes with findings suggesting chronic microvascular ischemia Possible right mastoiditis with increased soft tissue density surrounding the ossicles in the right middle ear. If clinically indicated, a temporal bone CT may be helpful for further evaluation. D/ / 11/01/2017 12:41:38 James Marmolejo MD / earnold Interpreting Provider: James Marmolejo MD Consult Discharge Plan - Plan Referrals: Verna Marie, PREMA [Primary Care Provider] -
[2017-11-02] MEDS: *HR* Enoxaparin 40 MG/0.4 ML SYRINGE SQ SCH (05:05)
[2017-11-02] MEDS: Lactobacillus 1 EACH CAP.SPRINK PO SCH (08:13)
[2017-11-02] MEDS: Ascorbic Acid 500 MG TABLET PO SCH (08:13)
[2017-11-02] MEDS: *HR* SitaGLIPtin 25 MG TABLET PO SCH (08:13)
[2017-11-02] MEDS: Aspirin 81 MG TAB.CHEW PO SCH (08:14)
[2017-11-02] MEDS: Multivit/Ca/Min/Fe/FA 1 TAB TABLET PO SCH (08:14)
[2017-11-02] MEDS: Cholecalciferol (D-3) 1,000 UNIT TABLET PO SCH (08:14)
[2017-11-02] MEDS: Insulin LISPRO 300 UNITS/3 ML VIAL SQ SCH ×2 (08:14→11:39)
[2017-11-02] MEDS: Piperacillin/Tazobactam 3.375 GM in 0.9 % Sodium Chloride Mini Bag 100 ML IVPB SCH (08:14)
[2017-11-02] MEDS: Vitamin B Complex/Vit C/Vit E 1 EACH TABLET PO SCH (08:14)
[2017-11-02 08:28] LABS: Basophils % 0.3 %; Eosinophils # 0.1 K/mcL (0.0-0.6); Eosinophils % 1.1 %; Hematocrit 45.5 % (37.5-50.1); Immature Granulocytes % 0.5 % (0-4); Lymphocytes # 1.6 K/mcL (0.6-4.6); Lymphocytes % 14.3 %; Mean Corpuscular Hemoglobin 32.1 pg (28.0-33.3); Mean Corpuscular Volume 97.2 fL (83.0-100.0); Monocytes # 0.9 K/mcL (0.0-1.3); Monocytes % 8.2 %; Neutrophils # 8.3 K/mcL (1.6-8.9); Platelet Count 174 K/mcL (140-400); Red Blood Count 4.68 M/mcL (4.19-5.50); Segmented Neutrophils % 75.6 %
[2017-11-02 08:48] LABS: Calcium 9.2 mg/dL (8.6-10.3); Potassium 4.4 mEq/L (3.5-5.1)
[2017-11-02] MEDS: Budesonide/Formoterol 80/4.5 MDI IH SCH (10:36)
[2017-11-02 15:22] VITALS: BP 133/66
--- NOTE | 2017-11-02 15:42 | Discharge Summary ---
- NOTES TO OUTPATIENT PROVIDER Notes to Outpatient Provider: none Date of Encounter: 11/02/17 Time of Encounter: 11:00 - Discharge Diagnosis (1) Community acquired pneumonia Priority: Primary Status: Acute Qualifiers: Laterality: unspecified laterality Qualified Code(s): J18.9 - Pneumonia, unspecified organism (2) COPD (chronic obstructive pulmonary disease) Priority: Primary Status: Chronic Qualifiers: COPD type: COPD with acute exacerbation Qualified Code(s): J44.1 - Chronic obstructive pulmonary disease with (acute) exacerbation (3) CKD (chronic kidney disease), stage III Priority: Primary Status: Chronic (4) DMII (diabetes mellitus, type 2) Priority: Primary Status: Chronic Qualifiers: Diabetes mellitus local intermodal truck driver insulin use: unspecified local intermodal truck driver insulin use status Qualified Code(s): E11.9 - Type 2 diabetes mellitus without complications (5) GERD (gastroesophageal reflux disease) Priority: Secondary Status: Chronic Qualifiers: Esophagitis presence: esophagitis presence not specified Qualified Code(s) : K21.9 - Gastro-esophageal reflux disease without esophagitis (6) HLD (hyperlipidemia) Priority: Secondary Status: Chronic Qualifiers: Hyperlipidemia type: mixed hyperlipidemia Qualified Code(s): E78.2 - Mixed hyperlipidemia (7) HTN (hypertension) Priority: Secondary Status: Chronic Qualifiers: Hypertension type: essential hypertension Qualified Code(s): I10 - Essential (primary) hypertension Hospital course: Patient is an 82-year-old male with past medical history significant for COPD, CVA, diabetes, high cholesterol, hypertension, TIA, CK D, lung cancer and smoking history who presented to the ER on 10/29/17 due to shortness of breath. Patient reported a 1 day of increased shortness of breath, productive cough fever up to 101 and came into the emergency room. His chest x-ray suggestive of right residual infiltrate and then new left basilar infiltrate WBC was 23,000 patient appears comfortable been admitted for treatment of pneumonia. Hemodynamically stable no chest pain also been having increased wheezing. During patients hospital stay his shortness of breath resolved after treatment of community acquired pneumonia with IV antibiotics. Physical therapy was consulted with recommendations for usp facility. Patient was not approved however so will be discharged home with home health. - Time Spent with Patient Total time spent providing and/or coordinating discharge services: - Discharge Medications Prescriptions: levoFLOXacin [Levaquin] 750 mg PO Q48H #2 tablet Home Medications: Albuterol Sulfate [Albuterol Inhaler] 2 puff IH Q4HR PRN 04/01/15 [History] Ascorbic Acid [Vitamin C] 500 mg PO QAM 04/01/15 [History] Aspirin 81 mg PO QAM 04/01/15 [History] Atorvastatin [Lipitor] 10 mg PO QPM 04/01/15 [History] BuPROPion [Wellbutrin] 75 mg PO QAM 04/01/15 [History] Cholecalciferol (Vitamin D3) [Vitamin D] 1,000 unit PO QAM 04/01/15 [History] Citalopram [CeleXA] 20 mg PO QAM 04/01/15 [History] Docusate [Colace] 100 mg PO QAM 04/01/15 [History] Krill Oil 500 mg PO DAILY 04/01/15 [History] Metoprolol [Lopressor] 25 mg PO QPM 04/01/15 [History] Multivitamin/Iron/Folic Acid [Centrum Complete Multivit Tab] 1 each PO QAM 04/01 [History] Omeprazole [PriLOSEC] 20 mg PO QAM 04/01/15 [History] Saccharomyces Boulardii [Probiotic] 250 mg PO DAILY 04/01/15 [History] Vitamin B Complex [B Complex] 1 each PO DAILY 04/01/15 [History] Sitagliptin Phosphate [Januvia] 50 mg PO DAILY 04/12/17 [History] Mometasone/Formoterol [Dulera 100 Mcg/5 Mcg Inhaler] 2 puff IH BID 04/13/17 [ History] levoFLOXacin [Levaquin] 750 mg PO Q48H #2 tablet 11/02/17 [Rx] Allergies/Adverse Reactions: 3 Allergy/AdvReac Type Severity Reaction Status Date / Time No Known Allergies Allergy Verified 10/29/17 19:27 Date of admission: 10/29/17 22:23 Primary care physician: Verna Marie CNP Consults: 10/29/17 22:27 Consult to Pulmonology [CONS] Routine Consulting Provider: [facility] Angélica Reason for Consult: lung cancer, copd and bilat pneumonia Call Completed: No 10/30/17 11:45 Consult to Occupational Therapy [CONS] Routine Comment: Evaluate, develop and implement POC Reason for Consult: discharge Does patient have active BEDREST order?: No Is patient medically & hemodynamically stable?: Yes Patient assessed for mobility or mobilized this visit?: No Consult to Physical Therapy [CONS] Routine Comment: Evaluate, develop and implement POC Reason for Consult: weakness Does patient have active BEDREST order?: No Is patient medically & hemodynamically stable?: Yes Patient assessed for mobility or mobilized this visit?: Yes - Constitutional Vitals: Temp Pulse Resp BP Pulse Ox 98.1 F 66 16 133/66 96 11/02/17 15:19 11/02/17 15:19 11/02/17 15:19 11/02/17 15:19 11/02/17 15:19 General appearance: Present: mild distress, A&O X 3, pleasant, no acute distress - Respiratory Respiratory exam: Present: CTAB. Absent: accessory muscle use, rales, rhonchi, wheezes - Cardiovascular Cardiovascular exam: Present: RRR, +S1, +S2. Absent: diastolic murmur, gallop, rubs, systolic murmur - Patient Status Disposition: Home Health Service Condition: Fair - Discharge Instructions Instructions: Chronic Obstructive Pulmonary Disease (DC) Follow Up With: Verna Marie CNP [Primary Care Provider] - 11/09/17 10:00 am (Please follow up as schedule...) - VTE Documentation of Mechanical Device: Intermittent pneumatic compression device
--- NOTE | 2017-11-02 15:43 | Physician Discharge Referral ---
Home Health/Hosp Referral Info Transfer to: Home Health - Diagnosis (1) Community acquired pneumonia Status: Acute (2) COPD (chronic obstructive pulmonary disease) Status: Chronic (3) CKD (chronic kidney disease), stage III Status: Chronic (4) DMII (diabetes mellitus, type 2) Status: Chronic (5) GERD (gastroesophageal reflux disease) Status: Chronic (6) HLD (hyperlipidemia) Status: Chronic (7) HTN (hypertension) Status: Chronic (8) DVT prophylaxis Status: Acute - Respiratory Orders Smoking Cessation: Smoking cessation has been advised. For more information, call the [place] Tobacco Quit Line at 7-881-DIOY-NOW. - Services Needed Following services are medically necessary services: Nursing, Physical Therapy, Occupational Therapy - Transfer Medications Prescriptions: levoFLOXacin [Levaquin] 750 mg PO Q48H #2 tablet Home Medications: Albuterol Sulfate [Albuterol Inhaler] 2 puff IH Q4HR PRN 04/01/15 [History] Ascorbic Acid [Vitamin C] 500 mg PO QAM 04/01/15 [History] Aspirin 81 mg PO QAM 04/01/15 [History] Atorvastatin [Lipitor] 10 mg PO QPM 04/01/15 [History] BuPROPion [Wellbutrin] 75 mg PO QAM 04/01/15 [History] Cholecalciferol (Vitamin D3) [Vitamin D] 1,000 unit PO QAM 04/01/15 [History] Citalopram [CeleXA] 20 mg PO QAM 04/01/15 [History] Docusate [Colace] 100 mg PO QAM 04/01/15 [History] Krill Oil 500 mg PO DAILY 04/01/15 [History] Metoprolol [Lopressor] 25 mg PO QPM 04/01/15 [History] Multivitamin/Iron/Folic Acid [Centrum Complete Multivit Tab] 1 each PO QAM 04/01 [History] Omeprazole [PriLOSEC] 20 mg PO QAM 04/01/15 [History] Saccharomyces Boulardii [Probiotic] 250 mg PO DAILY 04/01/15 [History] Vitamin B Complex [B Complex] 1 each PO DAILY 04/01/15 [History] Sitagliptin Phosphate [Januvia] 50 mg PO DAILY 04/12/17 [History] Mometasone/Formoterol [Dulera 100 Mcg/5 Mcg Inhaler] 2 puff IH BID 04/13/17 [ History] levoFLOXacin [Levaquin] 750 mg PO Q48H #2 tablet 11/02/17 [Rx] Allergies/Adverse Reactions: 3 Allergy/AdvReac Type Severity Reaction Status Date / Time No Known Allergies Allergy Verified 10/29/17 19:27 Certification: Further, I certify that my clinical findings support that this patient is homebound (i.e. absences from home require considerable and taxing effort and are for medical reasons or scientology services or infrequently or short duration when for other reasons) because: Homebound Reason: Patient requires assistance of a person or device to safely leave home Attestation: My signature below is to certify that this patient is under my care and that I, or nurse practitioner, or a physician's interior design assistant working with me, has a face-to -face encounter with this patient.
--- NOTE | 2017-11-02 16:33 | Electrocardiograph Report ---
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
== END 2017-11-02 18:16 | disposition home health service (06) | DRG 194 ==
LOC: EMEROO 19:23 → 2ANU 19:23 → SUATTDRO 22:23 → 2ANU 22:56
PROVIDERS: ADMIT Internal Medicine Cardiovascular Disease; ATTEND Hospitalist

== ENCOUNTER 2019-06-07 08:01 | Inpatient (IN) ==
[2019-06-07 08:42] LABS: Basophils # 0.1 K/mcL (0.0-0.2); Basophils % 0.2 %; Eosinophils # 0.1 K/mcL (0.0-0.6); Eosinophils % 0.2 %; Hematocrit 41.9 % (37.5-50.1); Hemoglobin 14.5 g/dL (12.9-16.9); Immature Granulocytes % 0.6 % (0-4); Lymphocytes # 1.7 K/mcL (0.6-4.6); Lymphocytes % 8.1 %; Mean Corpuscular HGB Conc 34.6 g/dL (31.6-35.5); Mean Corpuscular Hemoglobin 32.4 pg (28.0-33.3); Mean Corpuscular Volume 93.7 fL (83.0-100.0); Mean Platelet Volume 10.2 fL (9.4-12.4); Monocytes # 1.4 K/mcL (0.0-1.3); Monocytes % 6.7 %; Platelet Count 239 K/mcL (140-400); Red Blood Count 4.47 M/mcL (4.19-5.50); Red Cell Distribution Width 12.6 % (11.5-14.5); Segmented Neutrophils % 84.2 %; White Blood Count 21.4 K/mcL (4.3-11.1)
[2019-06-07] MEDS ORDERED: Ipratropium/Albuterol Neb 3 ML IH ONE (08:55)
[2019-06-07] MEDS ORDERED: cefTRIAXone 1,000 MG in Water for inj. (sterile) 10 ML IVP ONE (08:56)
[2019-06-07] MEDS ORDERED: Azithromycin 500 MG in D5% in Water 250 ML IVPB ONE (08:56)
[2019-06-07] MEDS ORDERED: 0.9 % Sodium Chloride 1,000 ML IVC STA (09:01)
[2019-06-07 09:07] LABS: Alanine Aminotransferase 17 Units/L (7-52); Albumin/Globulin Ratio 1.2 (1.1-2.2); Alkaline Phosphatase 83 Units/L (34-104); Aspartate Amino Transferase 17 Units/L (13-39); BUN/Creatinine Ratio 11 (6-26); Bilirubin,Direct 0.3 mg/dL (0.0-0.2); Bilirubin,Indirect 0.7 mg/dL (0.0-1.0); Blood Urea Nitrogen 23 mg/dL (8-23); Calcium 9.6 mg/dL (8.6-10.3); Carbon Dioxide 24 mEq/L (23-29); Chloride 104 mEq/L (98-107); Globulin 3.4 g/dL (2.4-3.5); Glucose 176 mg/dL (70-105); Osmolality,Calculated 300 (280-300); Potassium 4.7 mEq/L (3.5-5.1); Sodium 141 mEq/L (136-145); Total Protein 7.4 g/dL (6.4-8.9); eGFR For African Americans 37 (> 60); eGFR For Non-African Americans 31 (> 60)
[2019-06-07 09:08] LABS: Troponin I < 0.03 ng/mL (< 0.04)
[2019-06-07] MEDS ORDERED: methylPREDNISolone 125 MG/2 ML VIAL IVP ONE (09:50)
[2019-06-07] MEDS ORDERED: Ondansetron 4 MG/2 ML VIAL IVP PRN (10:15)
[2019-06-07] MEDS ORDERED: *HR* HYDROcodone/Acet 5/325 mg TABLET PO PRN (10:15)
[2019-06-07] MEDS ORDERED: Naloxone 0.4 MG/ML INJ IVP PRN (10:15)
[2019-06-07] MEDS ORDERED: Ipratropium/Albuterol Neb 3 ML IH PRN (10:17)
[2019-06-07] MEDS ORDERED: *HR* Dextrose 50 % in Water (Syg) 50 ML SYRINGE IVP PRN (10:21)
[2019-06-07] MEDS ORDERED: Dextrose Gel 15 GM/37.5 ML TUBE PO PRN ×2 (10:21)
[2019-06-07] MEDS ORDERED: D5% in Water 1,000 ML IVC PRN (10:21)
[2019-06-07] MEDS ORDERED: Albuterol 2.5 MG/3 ML NEBULIZER IH PRN (10:31)
[2019-06-07] MEDS: Ipratropium/Albuterol Neb 3 ML IH SCH ×3 (11:32→20:03)
[2019-06-07] MEDS: Insulin LISPRO 300 UNITS/3 ML VIAL SQ SCH ×3 (12:42→22:37)
[2019-06-07] MEDS: *HR* Heparin 5,000 UNIT/ML VIAL SQ SCH (17:04)
[2019-06-07] MEDS: MethylPREDNISolone 40 MG/ML VIAL IVP SCH (17:04)
[2019-06-07] MEDS: Budesonide/Formoterol 160/4.5 1 PUFF INH IH SCH (20:03)
[2019-06-07] MEDS ORDERED: NON-FORMULARY MEDICATION 1 EACH EACH (Mometasone/Formoterol [Dulera 100 Mcg/5 Mcg Inhaler] IH SCH (21:00)
[2019-06-08] MEDS: Ipratropium/Albuterol Neb 3 ML IH SCH ×6 (00:02→21:07)
[2019-06-08 05:23] LABS: Basophils % 0.1 %; Eosinophils % 0.1 %; Hematocrit 37.7 % (37.5-50.1); Immature Granulocytes % 0.8 % (0-4); Mean Corpuscular Hemoglobin 31.9 pg (28.0-33.3); Mean Platelet Volume 10.4 fL (9.4-12.4); Monocytes # 0.8 K/mcL (0.0-1.3); Monocytes % 4.3 %; Neutrophils # 17.5 K/mcL (1.6-8.9); Platelet Count 207 K/mcL (140-400); Red Blood Count 4.01 M/mcL (4.19-5.50); Red Cell Distribution Width 12.5 % (11.5-14.5); Segmented Neutrophils % 89.7 %; White Blood Count 19.5 K/mcL (4.3-11.1)
[2019-06-08 05:28] LABS: Hemoglobin 12.8 g/dL (12.9-16.9)
[2019-06-08 05:43] LABS: Calcium 9.5 mg/dL (8.6-10.3); Magnesium 1.8 mg/dL (1.6-2.6); Potassium 5.2 mEq/L (3.5-5.1)
[2019-06-08] MEDS: MethylPREDNISolone 40 MG/ML VIAL IVP SCH ×2 (06:37→17:20)
[2019-06-08] MEDS: *HR* Heparin 5,000 UNIT/ML VIAL SQ SCH ×2 (06:37→17:21)
[2019-06-08] MEDS: Budesonide/Formoterol 160/4.5 1 PUFF INH IH SCH ×2 (07:37→21:07)
[2019-06-08] MEDS: Cholecalciferol (D-3) 1,000 UNIT (25MCG) TABLET PO SCH (08:26)
[2019-06-08] MEDS: Aspirin 81 MG TAB.CHEW PO SCH (08:26)
[2019-06-08] MEDS: Multivit/Ca/Min/Fe/FA 1 TAB TABLET PO SCH (08:27)
[2019-06-08] MEDS: Insulin LISPRO 300 UNITS/3 ML VIAL SQ SCH ×5 (08:28→20:53)
[2019-06-08] MEDS: Ascorbic Acid 500 MG TABLET PO SCH (08:28)
[2019-06-08] MEDS ORDERED: Azithromycin 500 MG in 0.9 % Sodium Chloride 250 ML IVPB SCH (09:00)
[2019-06-08] MEDS ORDERED: NON-FORMULARY MEDICATION 1 EACH EACH (Ascorbate Calcium [Vitamin C] 500 MG) PO SCH (09:00)
[2019-06-08] MEDS ORDERED: cefTRIAXone 1,000 MG in 0.9 % Sodium Chloride Mini Bag 100 ML IVPB SCH (09:00)
[2019-06-08] MEDS ORDERED: cefTRIAXone 1,000 MG in Water for inj. (sterile) 10 ML IVP SCH (09:00)
[2019-06-08] MEDS ORDERED: NON-FORMULARY MEDICATION 1 EACH EACH (Multivitamin/Iron/Folic Acid [Centrum Complete Multi PO SCH (09:00)
[2019-06-08 09:03] LABS: ABG Base Excess 1 mEq/L (-2 to 3); ABG HCO3 26 mEq/L (21-27); ABG Oxygen Saturation 89 % (95-98); ABG PCO2 39 mmHg (35-45); ABG PH 7.43 pH Units (7.32-7.45); ABG PO2 55 mmHg (85-104); ABG TCO2 27 mEq/L (20-26)
[2019-06-08] MEDS: Piperacillin/Tazobactam 3.375 GM in 0.9 % Sodium Chloride Mini Bag 100 ML IVPB SCH ×2 (12:57→17:17)
[2019-06-08] MEDS: Acetaminophen 325 MG TABLET PO PRN (19:01)
[2019-06-09] MEDS: Ipratropium/Albuterol Neb 3 ML IH SCH ×7 (00:07→23:45)
[2019-06-09 04:57] LABS: Basophils % 0.1 %; Monocytes % 4.8 %; Red Cell Distribution Width 12.7 % (11.5-14.5)
[2019-06-09 04:58] LABS: Hematocrit 39.3 % (37.5-50.1); Hemoglobin 13.1 g/dL (12.9-16.9); Immature Granulocytes % 0.8 % (0-4); Lymphocytes # 0.6 K/mcL (0.6-4.6); Lymphocytes % 2.4 %; Mean Corpuscular HGB Conc 33.3 g/dL (31.6-35.5); Mean Corpuscular Hemoglobin 31.7 pg (28.0-33.3); Mean Corpuscular Volume 95.2 fL (83.0-100.0); Mean Platelet Volume 10.6 fL (9.4-12.4); Monocytes # 1.3 K/mcL (0.0-1.3); Neutrophils # 23.9 K/mcL (1.6-8.9); Platelet Count 226 K/mcL (140-400); Red Blood Count 4.13 M/mcL (4.19-5.50); Segmented Neutrophils % 91.9 %
[2019-06-09 05:14] LABS: Calcium 9.4 mg/dL (8.6-10.3); Magnesium 1.9 mg/dL (1.6-2.6); Phosphorous 3.4 mg/dL (2.7-4.5); Potassium 4.9 mEq/L (3.5-5.1)
[2019-06-09 05:24] LABS: Platelet Estimate Normal (Normal)
[2019-06-09] MEDS: MethylPREDNISolone 40 MG/ML VIAL IVP SCH ×2 (05:44→16:12)
[2019-06-09] MEDS: *HR* Heparin 5,000 UNIT/ML VIAL SQ SCH ×2 (05:45→16:12)
[2019-06-09] MEDS: Piperacillin/Tazobactam 3.375 GM in 0.9 % Sodium Chloride Mini Bag 100 ML IVPB SCH ×2 (05:45→16:12)
[2019-06-09] MEDS: Budesonide/Formoterol 160/4.5 1 PUFF INH IH SCH ×2 (07:45→19:43)
[2019-06-09] MEDS: Insulin LISPRO 300 UNITS/3 ML VIAL SQ SCH ×3 (08:54→21:35)
[2019-06-09] MEDS: Aspirin 81 MG TAB.CHEW PO SCH (08:55)
[2019-06-09] MEDS: Cholecalciferol (D-3) 1,000 UNIT (25MCG) TABLET PO SCH (08:55)
[2019-06-09] MEDS: Ascorbic Acid 500 MG TABLET PO SCH (08:55)
[2019-06-09] MEDS: Multivit/Ca/Min/Fe/FA 1 TAB TABLET PO SCH (08:55)
[2019-06-09] MEDS: Acetaminophen 325 MG TABLET PO PRN ×2 (12:32→20:02)
[2019-06-09] MEDS ORDERED: Ringers Solution, Lactated 500 ML IVC SCH (13:45)
[2019-06-10] MEDS: Ipratropium/Albuterol Neb 3 ML IH SCH ×5 (03:45→20:05)
[2019-06-10] MEDS: *HR* Heparin 5,000 UNIT/ML VIAL SQ SCH ×2 (05:53→17:11)
[2019-06-10] MEDS: MethylPREDNISolone 40 MG/ML VIAL IVP SCH (05:53)
[2019-06-10] MEDS: Piperacillin/Tazobactam 3.375 GM in 0.9 % Sodium Chloride Mini Bag 100 ML IVPB SCH ×3 (05:54→22:05)
[2019-06-10] MEDS: Insulin LISPRO 300 UNITS/3 ML VIAL SQ SCH ×5 (07:42→22:04)
[2019-06-10] MEDS: Budesonide/Formoterol 160/4.5 1 PUFF INH IH SCH ×2 (07:43→20:05)
[2019-06-10 08:14] LABS: Basophils % 0.1 %; Hematocrit 39.4 % (37.5-50.1); Hemoglobin 13.2 g/dL (12.9-16.9); Immature Granulocytes % 0.9 % (0-4); Lymphocytes # 0.6 K/mcL (0.6-4.6); Lymphocytes % 3.1 %; Mean Corpuscular HGB Conc 33.5 g/dL (31.6-35.5); Mean Corpuscular Hemoglobin 32.8 pg (28.0-33.3); Mean Corpuscular Volume 97.8 fL (83.0-100.0); Mean Platelet Volume 10.6 fL (9.4-12.4); Monocytes # 0.8 K/mcL (0.0-1.3); Monocytes % 4.3 %; Neutrophils # 16.4 K/mcL (1.6-8.9); Platelet Count 222 K/mcL (140-400); Red Blood Count 4.03 M/mcL (4.19-5.50); Red Cell Distribution Width 12.8 % (11.5-14.5); Segmented Neutrophils % 91.6 %; White Blood Count 17.9 K/mcL (4.3-11.1)
[2019-06-10 08:26] LABS: Calcium 9.4 mg/dL (8.6-10.3); Magnesium 2.1 mg/dL (1.6-2.6); Phosphorous 3.5 mg/dL (2.7-4.5); Potassium 4.6 mEq/L (3.5-5.1)
[2019-06-10] MEDS ORDERED: *HR* Midazolam HCl 5 MG/5 ML VIAL IVP ONE ×2 (08:41→09:07)
[2019-06-10] MEDS ORDERED: *HR* FentaNYL (PF) 100 MCG/2 ML VIAL ONE (08:41)
[2019-06-10] MEDS ORDERED: Lidocaine Viscous Oral Soln 15 ML SOLUTION ONE (09:06)
[2019-06-10] MEDS ORDERED: *HR* EPINEPHrine 1 MG/10 ML SYRINGE INTRATRACH PRN (09:07)
[2019-06-10] MEDS ORDERED: Ipratropium/Albuterol Neb 3 ML IH ONE (09:07)
[2019-06-10] MEDS ORDERED: *HR* FentaNYL (PF) 100 MCG/2 ML VIAL IVP ONE (09:07)
[2019-06-10] MEDS ORDERED: Lidocaine Viscous Oral Soln 15 ML SOLUTION MM ONE (09:07)
[2019-06-10] MEDS ORDERED: 0.9 % Sodium Chloride 500 ML IVC SCH (09:15)
[2019-06-10] MEDS ORDERED: 0.9 % Sodium Chloride 1,000 ML IVC SCH (09:15)
[2019-06-10] MEDS: Aspirin 81 MG TAB.CHEW PO SCH (11:59)
[2019-06-10] MEDS: Acetaminophen 325 MG TABLET PO PRN (11:59)
[2019-06-10] MEDS: Multivit/Ca/Min/Fe/FA 1 TAB TABLET PO SCH (12:00)
[2019-06-10] MEDS: Cholecalciferol (D-3) 1,000 UNIT (25MCG) TABLET PO SCH (12:00)
[2019-06-10] MEDS: Ascorbic Acid 500 MG TABLET PO SCH (12:00)
[2019-06-10] MEDS ORDERED: Ringers Solution, Lactated 1,000 ML IVC SCH (12:15)
[2019-06-10 16:19] LABS: Appearance of Body Fluid Cloudy (Clear); Volume of Body Fluid 17 mL
[2019-06-10] MEDS: Insulin DETEMIR 100 UNIT/ML X5UNITS SQ SCH (22:05)
[2019-06-11] MEDS: Piperacillin/Tazobactam 3.375 GM in 0.9 % Sodium Chloride Mini Bag 100 ML IVPB SCH (05:07)
[2019-06-11] MEDS: Acetaminophen 325 MG TABLET PO PRN ×2 (05:07→13:49)
[2019-06-11] MEDS: *HR* Heparin 5,000 UNIT/ML VIAL SQ SCH ×2 (05:09→16:08)
[2019-06-11] MEDS: Insulin LISPRO 300 UNITS/3 ML VIAL SQ SCH ×4 (08:18→21:43)
[2019-06-11] MEDS ORDERED: Menthol 9.1 MG LOZENGE PO PRN (08:21)
[2019-06-11 08:37] LABS: Basophils % 0.2 %; Eosinophils % 0.1 %; Hematocrit 43.4 % (37.5-50.1); Hemoglobin 14.3 g/dL (12.9-16.9); Immature Granulocytes % 1.2 % (0-4); Lymphocytes # 1.5 K/mcL (0.6-4.6); Lymphocytes % 8.1 %; Mean Corpuscular HGB Conc 32.9 g/dL (31.6-35.5); Mean Corpuscular Hemoglobin 31.6 pg (28.0-33.3); Mean Corpuscular Volume 95.8 fL (83.0-100.0); Mean Platelet Volume 10.3 fL (9.4-12.4); Monocytes # 1.1 K/mcL (0.0-1.3); Monocytes % 5.9 %; Platelet Count 250 K/mcL (140-400); Red Blood Count 4.53 M/mcL (4.19-5.50); Red Cell Distribution Width 12.9 % (11.5-14.5); Segmented Neutrophils % 84.5 %
[2019-06-11 08:56] LABS: Calcium 9.5 mg/dL (8.6-10.3); Magnesium 1.9 mg/dL (1.6-2.6); Potassium 4.5 mEq/L (3.5-5.1)
[2019-06-11] MEDS: Aspirin 81 MG TAB.CHEW PO SCH (09:13)
[2019-06-11] MEDS: predniSONE 20 MG TABLET PO SCH (09:13)
[2019-06-11] MEDS: Multivit/Ca/Min/Fe/FA 1 TAB TABLET PO SCH (09:13)
[2019-06-11] MEDS: Ascorbic Acid 500 MG TABLET PO SCH (09:13)
[2019-06-11] MEDS: Cholecalciferol (D-3) 1,000 UNIT (25MCG) TABLET PO SCH (09:13)
[2019-06-11] MEDS: Amoxicillin/Clavulanate 500 MG TABLET PO SCH (16:09)
[2019-06-11] MEDS: Budesonide/Formoterol 160/4.5 1 PUFF INH IH SCH (20:17)
[2019-06-11] MEDS: Insulin DETEMIR 100 UNIT/ML X5UNITS SQ SCH (21:44)
[2019-06-12 04:50] LABS: Basophils % 0.1 %; Hematocrit 38.7 % (37.5-50.1); Immature Granulocytes % 1.5 % (0-4); Lymphocytes # 1.1 K/mcL (0.6-4.6); Lymphocytes % 7.7 %; Mean Corpuscular HGB Conc 32.6 g/dL (31.6-35.5); Mean Corpuscular Volume 98.2 fL (83.0-100.0); Mean Platelet Volume 10.6 fL (9.4-12.4); Monocytes # 0.8 K/mcL (0.0-1.3); Monocytes % 5.8 %; Neutrophils # 12.3 K/mcL (1.6-8.9); Platelet Count 208 K/mcL (140-400); Red Blood Count 3.94 M/mcL (4.19-5.50); Red Cell Distribution Width 12.4 % (11.5-14.5); Segmented Neutrophils % 84.9 %; White Blood Count 14.5 K/mcL (4.3-11.1)
[2019-06-12 04:51] LABS: Hemoglobin 12.6 g/dL (12.9-16.9)
[2019-06-12 05:09] LABS: Calcium 8.9 mg/dL (8.6-10.3); Phosphorous 4.2 mg/dL (2.7-4.5); Potassium 4.5 mEq/L (3.5-5.1)
[2019-06-12] MEDS: *HR* Heparin 5,000 UNIT/ML VIAL SQ SCH ×2 (06:23→17:44)
[2019-06-12] MEDS: Insulin LISPRO 300 UNITS/3 ML VIAL SQ SCH ×4 (09:26→21:47)
[2019-06-12] MEDS: predniSONE 20 MG TABLET PO SCH (09:32)
[2019-06-12] MEDS: Multivit/Ca/Min/Fe/FA 1 TAB TABLET PO SCH (09:33)
[2019-06-12] MEDS: Amoxicillin/Clavulanate 500 MG TABLET PO SCH ×2 (09:33→17:44)
[2019-06-12] MEDS: Ascorbic Acid 500 MG TABLET PO SCH (09:33)
[2019-06-12] MEDS: Cholecalciferol (D-3) 1,000 UNIT (25MCG) TABLET PO SCH (09:34)
[2019-06-12] MEDS: Aspirin 81 MG TAB.CHEW PO SCH (09:34)
[2019-06-12] MEDS: Budesonide/Formoterol 160/4.5 1 PUFF INH IH SCH ×2 (11:06→19:57)
[2019-06-12] MEDS: Acetaminophen 325 MG TABLET PO PRN (15:21)
[2019-06-12] MEDS: Insulin DETEMIR 100 UNIT/ML X5UNITS SQ SCH (21:47)
[2019-06-13] MEDS: *HR* Heparin 5,000 UNIT/ML VIAL SQ SCH ×2 (05:46→18:30)
[2019-06-13 06:46] LABS: Basophils # 0.1 K/mcL (0.0-0.2); Basophils % 0.3 %; Eosinophils % 0.1 %; Hematocrit 44.6 % (37.5-50.1); Immature Granulocytes % 1.5 % (0-4); Lymphocytes # 1.2 K/mcL (0.6-4.6); Lymphocytes % 7.3 %; Mean Corpuscular HGB Conc 33.4 g/dL (31.6-35.5); Mean Corpuscular Hemoglobin 31.6 pg (28.0-33.3); Mean Corpuscular Volume 94.5 fL (83.0-100.0); Mean Platelet Volume 10.6 fL (9.4-12.4); Monocytes % 5.8 %; Platelet Count 245 K/mcL (140-400); Red Blood Count 4.72 M/mcL (4.19-5.50); Red Cell Distribution Width 12.5 % (11.5-14.5); White Blood Count 16.5 K/mcL (4.3-11.1)
[2019-06-13 06:58] LABS: Calcium 9.3 mg/dL (8.6-10.3)
[2019-06-13 07:12] LABS: Hemoglobin 14.9 g/dL (12.9-16.9)
[2019-06-13] MEDS: predniSONE 20 MG TABLET PO SCH (08:17)
[2019-06-13] MEDS: Cholecalciferol (D-3) 1,000 UNIT (25MCG) TABLET PO SCH (08:17)
[2019-06-13] MEDS: Multivit/Ca/Min/Fe/FA 1 TAB TABLET PO SCH (08:17)
[2019-06-13] MEDS: Amoxicillin/Clavulanate 500 MG TABLET PO SCH (08:18)
[2019-06-13] MEDS: Insulin LISPRO 300 UNITS/3 ML VIAL SQ SCH ×4 (08:18→20:51)
[2019-06-13] MEDS: Aspirin 81 MG TAB.CHEW PO SCH (08:18)
[2019-06-13] MEDS: Ascorbic Acid 500 MG TABLET PO SCH (08:18)
[2019-06-13] MEDS: Budesonide/Formoterol 160/4.5 1 PUFF INH IH SCH ×2 (10:17→19:49)
[2019-06-13] MEDS: Acetaminophen 325 MG TABLET PO PRN (16:28)
[2019-06-13] MEDS: Insulin DETEMIR 100 UNIT/ML X5UNITS SQ SCH (20:44)
[2019-06-14] MEDS: *HR* Heparin 5,000 UNIT/ML VIAL SQ SCH ×2 (05:58→17:10)
[2019-06-14] MEDS: Budesonide/Formoterol 160/4.5 1 PUFF INH IH SCH ×2 (07:56→20:13)
[2019-06-14] MEDS: Aspirin 81 MG TAB.CHEW PO SCH (08:42)
[2019-06-14] MEDS: Cholecalciferol (D-3) 1,000 UNIT (25MCG) TABLET PO SCH (08:42)
[2019-06-14] MEDS: Multivit/Ca/Min/Fe/FA 1 TAB TABLET PO SCH (08:42)
[2019-06-14] MEDS: Acetaminophen 325 MG TABLET PO PRN (08:42)
[2019-06-14] MEDS: predniSONE 20 MG TABLET PO SCH (08:42)
[2019-06-14] MEDS: Ascorbic Acid 500 MG TABLET PO SCH (08:42)
[2019-06-14] MEDS: Insulin LISPRO 300 UNITS/3 ML VIAL SQ SCH ×4 (08:43→19:51)
[2019-06-14] MEDS: Insulin DETEMIR 100 UNIT/ML X5UNITS SQ SCH (20:23)
[2019-06-15] MEDS: *HR* Heparin 5,000 UNIT/ML VIAL SQ SCH ×2 (05:13→17:38)
[2019-06-15] MEDS: Budesonide/Formoterol 160/4.5 1 PUFF INH IH SCH ×2 (07:51→20:12)
[2019-06-15] MEDS: Insulin LISPRO 300 UNITS/3 ML VIAL SQ SCH ×4 (07:54→20:03)
[2019-06-15] MEDS: Multivit/Ca/Min/Fe/FA 1 TAB TABLET PO SCH (08:26)
[2019-06-15] MEDS: Aspirin 81 MG TAB.CHEW PO SCH (08:26)
[2019-06-15] MEDS: Ascorbic Acid 500 MG TABLET PO SCH (08:26)
[2019-06-15] MEDS: Cholecalciferol (D-3) 1,000 UNIT (25MCG) TABLET PO SCH (08:26)
[2019-06-15] MEDS: predniSONE 20 MG TABLET PO SCH (08:26)
[2019-06-15] MEDS: Insulin DETEMIR 100 UNIT/ML X5UNITS SQ SCH (20:03)
[2019-06-16 05:04] LABS: Basophils # 0.1 K/mcL (0.0-0.2); Basophils % 0.3 %; Eosinophils % 0.2 %; Hematocrit 44.8 % (37.5-50.1); Hemoglobin 14.7 g/dL (12.9-16.9); Lymphocytes # 2.3 K/mcL (0.6-4.6); Lymphocytes % 9.8 %; Mean Corpuscular HGB Conc 32.8 g/dL (31.6-35.5); Mean Corpuscular Hemoglobin 31.7 pg (28.0-33.3); Mean Corpuscular Volume 96.8 fL (83.0-100.0); Mean Platelet Volume 10.4 fL (9.4-12.4); Monocytes # 1.4 K/mcL (0.0-1.3); Monocytes % 5.8 %; Neutrophils # 19.2 K/mcL (1.6-8.9); Platelet Count 224 K/mcL (140-400); Red Blood Count 4.63 M/mcL (4.19-5.50); Red Cell Distribution Width 12.6 % (11.5-14.5); Segmented Neutrophils % 81.9 %; White Blood Count 23.5 K/mcL (4.3-11.1)
[2019-06-16 05:26] LABS: Calcium 9.3 mg/dL (8.6-10.3); Potassium 4.6 mEq/L (3.5-5.1)
[2019-06-16] MEDS: *HR* Heparin 5,000 UNIT/ML VIAL SQ SCH ×2 (05:28→18:42)
[2019-06-16] MEDS: Budesonide/Formoterol 160/4.5 1 PUFF INH IH SCH ×2 (07:29→19:46)
[2019-06-16] MEDS: Insulin LISPRO 300 UNITS/3 ML VIAL SQ SCH ×4 (07:56→20:26)
[2019-06-16] MEDS: Acetaminophen 325 MG TABLET PO PRN ×2 (07:57→16:42)
[2019-06-16] MEDS: Multivit/Ca/Min/Fe/FA 1 TAB TABLET PO SCH (07:57)
[2019-06-16] MEDS: Cholecalciferol (D-3) 1,000 UNIT (25MCG) TABLET PO SCH (07:57)
[2019-06-16] MEDS: predniSONE 20 MG TABLET PO SCH (07:57)
[2019-06-16] MEDS: Ascorbic Acid 500 MG TABLET PO SCH (07:58)
[2019-06-16] MEDS: Aspirin 81 MG TAB.CHEW PO SCH (07:58)
[2019-06-16 12:12] LABS: Bilirubin,Urine Negative (Negative); Blood,Urine Negative (Negative); Clarity,Urine Clear (Clear); Color,Urine Yellow (Yellow); Glucose,Urine (UA) Normal (Normal); Ketones,Urine Negative (Negative); Leukocyte Esterase,Urine Small (Negative); Nitrite,Urine Negative (Negative); Protein,Urine 30 mg/dL (Neg-Trace); Specific Gravity,Urine 1.024 (1.010-1.025); Urobilinogen,Urine Normal (Normal)
[2019-06-16 12:13] LABS: Bacteria,Urine None Seen per hpf (None-Few); Hyaline Casts,Urine None Seen per lpf (None-Few); Squamous Epithelial Cell,Urine Many per lpf (None-Few)
[2019-06-16] MEDS: Insulin DETEMIR 100 UNIT/ML X5UNITS SQ SCH (20:26)
[2019-06-17] MEDS: *HR* Heparin 5,000 UNIT/ML VIAL SQ SCH (05:10)
[2019-06-17 06:07] LABS: Basophils # 0.1 K/mcL (0.0-0.2); Basophils % 0.3 %; Eosinophils % 0.2 %; Hematocrit 44.8 % (37.5-50.1); Hemoglobin 14.8 g/dL (12.9-16.9); Immature Granulocytes % 2.4 % (0-4); Lymphocytes # 2.1 K/mcL (0.6-4.6); Lymphocytes % 9.2 %; Mean Corpuscular Hemoglobin 31.6 pg (28.0-33.3); Mean Corpuscular Volume 95.5 fL (83.0-100.0); Mean Platelet Volume 10.6 fL (9.4-12.4); Monocytes # 1.5 K/mcL (0.0-1.3); Monocytes % 6.6 %; Neutrophils # 18.6 K/mcL (1.6-8.9); Platelet Count 220 K/mcL (140-400); Red Blood Count 4.69 M/mcL (4.19-5.50); Red Cell Distribution Width 12.9 % (11.5-14.5); Segmented Neutrophils % 81.3 %; White Blood Count 22.9 K/mcL (4.3-11.1)
[2019-06-17 07:15] VITALS: BP 167/77
[2019-06-17] MEDS: Budesonide/Formoterol 160/4.5 1 PUFF INH IH SCH (07:48)
[2019-06-17] MEDS: Aspirin 81 MG TAB.CHEW PO SCH (07:52)
[2019-06-17] MEDS: Multivit/Ca/Min/Fe/FA 1 TAB TABLET PO SCH (07:52)
[2019-06-17] MEDS: Cholecalciferol (D-3) 1,000 UNIT (25MCG) TABLET PO SCH (07:53)
[2019-06-17] MEDS: Insulin LISPRO 300 UNITS/3 ML VIAL SQ SCH (07:53)
[2019-06-17] MEDS: Ascorbic Acid 500 MG TABLET PO SCH (07:53)
[2019-06-17] MEDS ORDERED: predniSONE 10 MG TABLET PO SCH (09:00)
[2019-06-17] MEDS ORDERED: FLU Vac QV 19-20 (6Month+)/PF 0.5 ML SYRINGE IM ONE (10:47)
== END 2019-06-17 11:45 | DRG 193 ==
LOC: 2ANU 08:01 → EMEROOARM 08:01 → SUATTDRO 10:03 → 2ANU 10:45 → SUATTDRO 06-10 15:24
PROVIDERS: ADMIT Internal Medicine; ATTEND Family Medicine

== ENCOUNTER 2019-07-07 12:47 | Inpatient (IN) ==
[2019-07-07] MEDS ORDERED: Ipratropium/Albuterol Neb 3 ML IH ONE (13:11)
[2019-07-07 13:27] LABS: Basophils # 0.1 K/mcL (0.0-0.2); Basophils % 0.3 %; Hematocrit 42.3 % (37.5-50.1); Hemoglobin 13.5 g/dL (12.9-16.9); Immature Granulocytes % 0.7 % (0-4); Lymphocytes % 6.6 %; Mean Corpuscular HGB Conc 31.9 g/dL (31.6-35.5); Mean Corpuscular Hemoglobin 32.1 pg (28.0-33.3); Mean Corpuscular Volume 100.7 fL (83.0-100.0); Mean Platelet Volume 10.6 fL (9.4-12.4); Monocytes # 1.4 K/mcL (0.0-1.3); Monocytes % 8.8 %; Neutrophils # 13.3 K/mcL (1.6-8.9); Platelet Count 168 K/mcL (140-400); Red Cell Distribution Width 13.2 % (11.5-14.5); Segmented Neutrophils % 83.6 %; White Blood Count 15.9 K/mcL (4.3-11.1)
[2019-07-07 13:32] LABS: INR 1.2; Prothrombin Time 13.4 Seconds (9.4-12.1)
[2019-07-07 13:34] LABS: Activated Partial Thrombo Time 28.7 Seconds (26.0-36.0)
[2019-07-07 13:49] LABS: Calcium 9.4 mg/dL (8.6-10.3)
[2019-07-07 13:55] LABS: Troponin I 0.04 ng/mL (< 0.04)
[2019-07-07] MEDS ORDERED: Aspirin 81 MG TAB.CHEW PO ONE (13:55)
[2019-07-07] MEDS ORDERED: 0.9 % Sodium Chloride 500 ML IVC ONE (15:26)
[2019-07-07] MEDS ORDERED: Piperacillin/Tazobactam 3.375 GM in 0.9 % Sodium Chloride Mini Bag 100 ML IVPB ONE (15:40)
[2019-07-07] MEDS ORDERED: levoFLOXacin 750 MG/150 ML 750 MG/150 ML BAG IVPB ONE (15:40)
[2019-07-07] MEDS ORDERED: Sennosides/Docusate Sodium TABLET PO PRN (16:34)
[2019-07-07] MEDS ORDERED: Sennosides/Docusate Sodium TABLET PO ONE (16:35)
[2019-07-07] MEDS ORDERED: Naloxone 0.4 MG/ML INJ IVP PRN (16:41)
[2019-07-07] MEDS ORDERED: predniSONE 20 MG TABLET PO SCH (16:51)
[2019-07-07 17:06] LABS: Bilirubin,Urine Negative (Negative); Blood,Urine Small (Negative); Clarity,Urine Clear (Clear); Color,Urine Yellow (Yellow); Glucose,Urine (UA) Normal (Normal); Ketones,Urine Negative (Negative); Leukocyte Esterase,Urine Small (Negative); Nitrite,Urine Negative (Negative); PH,Urine 7.5 pH Units (5.0-8.0); Protein,Urine 100 mg/dL (Neg-Trace); Specific Gravity,Urine 1.025 (1.010-1.025); Urobilinogen,Urine Normal (Normal)
[2019-07-07 17:08] LABS: Hyaline Casts,Urine None Seen per lpf (None-Few); RBC,Urine 15-30 per hpf (0-3); Squamous Epithelial Cell,Urine Many per lpf (None-Few)
[2019-07-07 17:22] LABS: Bacteria,Urine Few per hpf (None-Few)
[2019-07-07] MEDS ORDERED: D5% in Water 1,000 ML IVC PRN (17:23)
[2019-07-07] MEDS ORDERED: *HR* Dextrose 50 % in Water (Syg) 50 ML SYRINGE IVP PRN (17:23)
[2019-07-07] MEDS ORDERED: Dextrose Gel 15 GM/37.5 ML TUBE PO PRN ×2 (17:23)
[2019-07-07] MEDS: Ipratropium/Albuterol Neb 3 ML IH SCH ×2 (19:30→23:37)
[2019-07-07] MEDS: GuaiFENesin/Dextromethorphan TABLET PO SCH (20:31)
[2019-07-07] MEDS: *HR* Heparin 5,000 UNIT/ML VIAL SQ SCH (20:31)
[2019-07-07] MEDS: Insulin LISPRO 300 UNITS/3 ML VIAL SQ SCH (20:31)
[2019-07-07 20:36] LABS: Adenovirus Not Detected (Not Detect); Bordetella Pertussis Not Detected (Not Detect); Chlamydophila pneumoniae Not Detected (Not Detect); Coronavirus 229E Not Detected (Not Detect); Coronavirus HKU1 Not Detected (Not Detect); Coronavirus NL63 Not Detected (Not Detect); Coronavirus OC43 Not Detected (Not Detect); Human Metapneumovirus Not Detected (Not Detect); Human Rhinovirus/Enterovirus Not Detected (Not Detect); Influenza A Subtype 2009 H1 Not Detected (Not Detect); Influenza A Untypeable Not Detected (Not Detect); Influenza B Not Detected (Not Detect); Mycoplasma pneumoniae Not Detected (Not Detect); Parainfluenza Virus 1 Not Detected (Not Detect); Parainfluenza Virus 2 Not Detected (Not Detect); Parainfluenza Virus 3 Not Detected (Not Detect); Parainfluenza Virus 4 Not Detected (Not Detect); Respiratory Syncytial Virus DETECTED (Not Detect)
[2019-07-08] MEDS: Piperacillin/Tazobactam 3.375 GM in 0.9 % Sodium Chloride Mini Bag 100 ML IVPB SCH ×3 (00:54→15:10)
[2019-07-08] MEDS: Ipratropium/Albuterol Neb 3 ML IH SCH ×6 (03:00→23:24)
[2019-07-08] MEDS: *HR* Heparin 5,000 UNIT/ML VIAL SQ SCH ×2 (06:20→17:35)
[2019-07-08] MEDS: GuaiFENesin/Dextromethorphan TABLET PO SCH ×2 (08:27→20:04)
[2019-07-08] MEDS: Insulin LISPRO 300 UNITS/3 ML VIAL SQ SCH ×4 (08:28→20:02)
[2019-07-08] MEDS ORDERED: E-Z-HD (BARIUM SULF) SUSPENSION PO ONE (10:16)
[2019-07-08] MEDS ORDERED: E-Z-PAQUE (BARIUM SULF) SUSP 1 BOTTLE PO ONE (10:16)
[2019-07-08 11:22] LABS: Basophils % 0.2 %; Hematocrit 35.9 % (37.5-50.1); Immature Granulocytes % 0.6 % (0-4); Lymphocytes # 1.3 K/mcL (0.6-4.6); Lymphocytes % 9.9 %; Mean Corpuscular HGB Conc 32.6 g/dL (31.6-35.5); Mean Corpuscular Hemoglobin 32.4 pg (28.0-33.3); Mean Corpuscular Volume 99.4 fL (83.0-100.0); Mean Platelet Volume 10.6 fL (9.4-12.4); Monocytes # 0.9 K/mcL (0.0-1.3); Monocytes % 7.3 %; Neutrophils # 10.3 K/mcL (1.6-8.9); Platelet Count 138 K/mcL (140-400); Red Blood Count 3.61 M/mcL (4.19-5.50); Red Cell Distribution Width 13.2 % (11.5-14.5); White Blood Count 12.6 K/mcL (4.3-11.1)
[2019-07-08 11:30] LABS: Hemoglobin 11.7 g/dL (12.9-16.9)
[2019-07-08 11:37] LABS: Calcium 8.6 mg/dL (8.6-10.3); Potassium 4.5 mEq/L (3.5-5.1)
[2019-07-08] MEDS ORDERED: Albuterol 2.5 MG/3 ML NEBULIZER IH PRN (11:40)
[2019-07-08] MEDS ORDERED: MOM Conc 10 ML UD.LIQ PO PRN (11:40)
[2019-07-08] MEDS ORDERED: Acetaminophen 325 MG TABLET PO PRN (11:40)
[2019-07-08] MEDS ORDERED: 0.9 % Sodium Chloride 1,000 ML IVC SCH (11:45)
[2019-07-08] MEDS: Nystatin SUSP 5 ML UD.LIQ PO SCH ×3 (12:10→20:04)
[2019-07-08] MEDS: MethylPREDNISolone 40 MG/ML VIAL IVP SCH (17:24)
[2019-07-08] MEDS: Budesonide/Formoterol 160/4.5 1 PUFF INH IH SCH (19:33)
[2019-07-08] MEDS ORDERED: Aminoglycoside Consult 1 EACH MC ONE (19:36)
[2019-07-08] MEDS: Lactobacillus 1 EACH CAP.SPRINK PO SCH (20:04)
[2019-07-09] MEDS: Piperacillin/Tazobactam 3.375 GM in 0.9 % Sodium Chloride Mini Bag 100 ML IVPB SCH ×2 (00:48→09:13)
[2019-07-09] MEDS: Ipratropium/Albuterol Neb 3 ML IH SCH ×5 (03:44→20:10)
[2019-07-09] MEDS: MethylPREDNISolone 40 MG/ML VIAL IVP SCH ×2 (05:11→18:39)
[2019-07-09] MEDS: *HR* Heparin 5,000 UNIT/ML VIAL SQ SCH ×2 (05:11→18:39)
[2019-07-09 05:34] LABS: Hematocrit 34.4 % (37.5-50.1); Hemoglobin 11.3 g/dL (12.9-16.9); Mean Corpuscular HGB Conc 32.8 g/dL (31.6-35.5); Mean Corpuscular Hemoglobin 31.8 pg (28.0-33.3); Mean Corpuscular Volume 96.9 fL (83.0-100.0); Mean Platelet Volume 10.9 fL (9.4-12.4); Platelet Count 139 K/mcL (140-400); Red Blood Count 3.55 M/mcL (4.19-5.50); Red Cell Distribution Width 13.2 % (11.5-14.5); White Blood Count 9.2 K/mcL (4.3-11.1)
[2019-07-09 05:54] LABS: Calcium 8.2 mg/dL (8.6-10.3); Potassium 5.2 mEq/L (3.5-5.1)
[2019-07-09] MEDS: Budesonide/Formoterol 160/4.5 1 PUFF INH IH SCH ×2 (07:21→20:10)
[2019-07-09] MEDS ORDERED: levoFLOXacin 750 MG/150 ML 750 MG/150 ML BAG IVPB SCH ×2 (09:00→14:00)
[2019-07-09] MEDS: Nystatin SUSP 5 ML UD.LIQ PO SCH ×4 (09:15→19:56)
[2019-07-09] MEDS: Multivit/Ca/Min/Fe/FA 1 TAB TABLET PO SCH (09:15)
[2019-07-09] MEDS: Insulin LISPRO 300 UNITS/3 ML VIAL SQ SCH ×4 (09:15→19:56)
[2019-07-09] MEDS: Ascorbic Acid 500 MG TABLET PO SCH (09:15)
[2019-07-09] MEDS: GuaiFENesin/Dextromethorphan TABLET PO SCH ×2 (09:15→19:56)
[2019-07-09] MEDS: Lactobacillus 1 EACH CAP.SPRINK PO SCH ×2 (09:15→19:56)
[2019-07-09] MEDS: Vitamin B Complex/Vit C/Vit E 1 EACH TABLET PO SCH (09:15)
[2019-07-09] MEDS: Aspirin 81 MG TAB.CHEW PO SCH (09:15)
[2019-07-10] MEDS: Ipratropium/Albuterol Neb 3 ML IH SCH ×7 (00:11→23:35)
[2019-07-10] MEDS: *HR* Heparin 5,000 UNIT/ML VIAL SQ SCH ×2 (06:04→19:50)
[2019-07-10] MEDS: MethylPREDNISolone 40 MG/ML VIAL IVP SCH (06:05)
[2019-07-10] MEDS: Budesonide/Formoterol 160/4.5 1 PUFF INH IH SCH ×2 (07:32→20:13)
[2019-07-10] MEDS: Nystatin SUSP 5 ML UD.LIQ PO SCH ×4 (09:18→20:58)
[2019-07-10] MEDS: Vitamin B Complex/Vit C/Vit E 1 EACH TABLET PO SCH (09:18)
[2019-07-10] MEDS: Lactobacillus 1 EACH CAP.SPRINK PO SCH ×2 (09:18→20:58)
[2019-07-10] MEDS: Multivit/Ca/Min/Fe/FA 1 TAB TABLET PO SCH (09:18)
[2019-07-10] MEDS: predniSONE 20 MG TABLET PO SCH (09:19)
[2019-07-10] MEDS: Aspirin 81 MG TAB.CHEW PO SCH (09:19)
[2019-07-10] MEDS: GuaiFENesin/Dextromethorphan TABLET PO SCH ×2 (09:19→20:58)
[2019-07-10] MEDS: Ascorbic Acid 500 MG TABLET PO SCH (09:19)
[2019-07-10] MEDS: Insulin LISPRO 300 UNITS/3 ML VIAL SQ SCH ×4 (09:20→21:00)
[2019-07-10 10:30] LABS: Hematocrit 37.5 % (37.5-50.1); Hemoglobin 12.5 g/dL (12.9-16.9); Mean Corpuscular HGB Conc 33.3 g/dL (31.6-35.5); Mean Corpuscular Hemoglobin 32.6 pg (28.0-33.3); Mean Corpuscular Volume 97.7 fL (83.0-100.0); Mean Platelet Volume 10.9 fL (9.4-12.4); Platelet Count 148 K/mcL (140-400); Red Blood Count 3.84 M/mcL (4.19-5.50); Red Cell Distribution Width 13.2 % (11.5-14.5)
[2019-07-10 10:51] LABS: Calcium 8.8 mg/dL (8.6-10.3); Potassium 5.3 mEq/L (3.5-5.1)
[2019-07-10] MEDS ORDERED: Insulin Regular, Human 100 UNIT/ML SQ ONE ×2 (11:38→12:00)
[2019-07-10] MEDS ORDERED: Insulin LISPRO 300 UNITS/3 ML VIAL SQ ONE (13:00)
[2019-07-10] MEDS ORDERED: Insulin DETEMIR 100 UNIT/ML X5UNITS SQ SCH (21:00)
[2019-07-10 22:45] LABS: Calcium 8.9 mg/dL (8.6-10.3); Potassium 4.7 mEq/L (3.5-5.1)
[2019-07-11] MEDS ORDERED: Insulin Human Regular 5 UNIT in 0.9 % Sodium Chloride 10 ML IV ONE (00:37)
[2019-07-11 01:03] LABS: Hematocrit 34.1 % (37.5-50.1); Hemoglobin 11.5 g/dL (12.9-16.9); Mean Corpuscular HGB Conc 33.7 g/dL (31.6-35.5); Mean Corpuscular Hemoglobin 32.8 pg (28.0-33.3); Mean Corpuscular Volume 97.2 fL (83.0-100.0); Mean Platelet Volume 10.8 fL (9.4-12.4); Platelet Count 144 K/mcL (140-400); Red Blood Count 3.51 M/mcL (4.19-5.50); Red Cell Distribution Width 13.1 % (11.5-14.5); White Blood Count 14.4 K/mcL (4.3-11.1)
[2019-07-11 01:20] LABS: Calcium 8.9 mg/dL (8.6-10.3); Potassium 4.6 mEq/L (3.5-5.1)
[2019-07-11] MEDS: Ipratropium/Albuterol Neb 3 ML IH SCH ×4 (04:16→15:23)
[2019-07-11] MEDS: *HR* Heparin 5,000 UNIT/ML VIAL SQ SCH (06:21)
[2019-07-11 07:01] VITALS: BP 148/76
[2019-07-11] MEDS: Budesonide/Formoterol 160/4.5 1 PUFF INH IH SCH (07:48)
[2019-07-11] MEDS: Vitamin B Complex/Vit C/Vit E 1 EACH TABLET PO SCH (08:47)
[2019-07-11] MEDS: Nystatin SUSP 5 ML UD.LIQ PO SCH ×2 (08:48→09:19)
[2019-07-11] MEDS: Aspirin 81 MG TAB.CHEW PO SCH (08:48)
[2019-07-11] MEDS: Multivit/Ca/Min/Fe/FA 1 TAB TABLET PO SCH (08:48)
[2019-07-11] MEDS: Lactobacillus 1 EACH CAP.SPRINK PO SCH (09:18)
[2019-07-11] MEDS: predniSONE 20 MG TABLET PO SCH (09:18)
[2019-07-11] MEDS: Ascorbic Acid 500 MG TABLET PO SCH (09:18)
[2019-07-11] MEDS: GuaiFENesin/Dextromethorphan TABLET PO SCH (09:19)
[2019-07-11] MEDS: Insulin LISPRO 300 UNITS/3 ML VIAL SQ SCH (09:19)
[2019-07-11 11:12] LABS: Mycoplasma pneumoniae IgG 0.33 U/L (<=0.09)
== END 2019-07-11 19:37 | disposition home health service (06) | DRG 871 ==
LOC: 2NENU 12:47 → EMEROOARM 12:47 → 2NENU 17:04 → SUATTDRO 18:37
PROVIDERS: ADMIT Internal Medicine; ATTEND Internal Medicine

== ENCOUNTER 2019-07-13 14:03 | Inpatient (IN) ==
[2019-07-13] MEDS ORDERED: 0.9 % Sodium Chloride 1,000 ML IVC ONE ×2 (14:22→15:41)
[2019-07-13 14:48] LABS: Basophils % 0.2 %; Hematocrit 38.2 % (37.5-50.1); Immature Granulocytes % 2.3 % (0-4); Lymphocytes # 0.9 K/mcL (0.6-4.6); Lymphocytes % 4.6 %; Mean Corpuscular HGB Conc 34.3 g/dL (31.6-35.5); Mean Corpuscular Hemoglobin 32.5 pg (28.0-33.3); Mean Corpuscular Volume 94.8 fL (83.0-100.0); Mean Platelet Volume 10.8 fL (9.4-12.4); Monocytes # 0.7 K/mcL (0.0-1.3); Monocytes % 3.6 %; Neutrophils # 17.4 K/mcL (1.6-8.9); Platelet Count 195 K/mcL (140-400); Red Blood Count 4.03 M/mcL (4.19-5.50); Red Cell Distribution Width 13.1 % (11.5-14.5); Segmented Neutrophils % 89.3 %; White Blood Count 19.4 K/mcL (4.3-11.1)
[2019-07-13 14:49] LABS: Hemoglobin 13.1 g/dL (12.9-16.9)
[2019-07-13 14:55] LABS: INR 1.1; Prothrombin Time 12.4 Seconds (9.4-12.1)
[2019-07-13 14:58] LABS: Activated Partial Thrombo Time 23.1 Seconds (26.0-36.0)
[2019-07-13 15:08] LABS: Calcium 9.2 mg/dL (8.6-10.3); Potassium 4.9 mEq/L (3.5-5.1)
[2019-07-13] MEDS ORDERED: 0.9 % Sodium Chloride 1,000 ML ONE (15:41)
[2019-07-13 17:21] LABS: Basophils % 0.2 %; Hematocrit 35.1 % (37.5-50.1); Hemoglobin 11.6 g/dL (12.9-16.9); Immature Granulocytes % 2.4 % (0-4); Lymphocytes # 1.3 K/mcL (0.6-4.6); Lymphocytes % 7.4 %; Mean Corpuscular Hemoglobin 31.8 pg (28.0-33.3); Mean Corpuscular Volume 96.2 fL (83.0-100.0); Mean Platelet Volume 10.5 fL (9.4-12.4); Monocytes # 0.8 K/mcL (0.0-1.3); Monocytes % 4.5 %; Neutrophils # 15.3 K/mcL (1.6-8.9); Platelet Count 153 K/mcL (140-400); Red Blood Count 3.65 M/mcL (4.19-5.50); Red Cell Distribution Width 12.8 % (11.5-14.5); Segmented Neutrophils % 85.5 %; White Blood Count 17.9 K/mcL (4.3-11.1)
[2019-07-13] MEDS ORDERED: Naloxone 0.4 MG/ML INJ IVP PRN (18:20)
[2019-07-13] MEDS ORDERED: Ondansetron 4 MG/2 ML VIAL IVP PRN (18:20)
[2019-07-13] MEDS ORDERED: *HR* Dextrose 50 % in Water (Syg) 50 ML SYRINGE IVP PRN (18:23)
[2019-07-13] MEDS ORDERED: D5% in Water 1,000 ML IVC PRN (18:23)
[2019-07-13] MEDS ORDERED: Dextrose Gel 15 GM/37.5 ML TUBE PO PRN ×2 (18:23)
[2019-07-14 00:05] LABS: Hemoglobin 11.1 g/dL (12.9-16.9)
[2019-07-14] MEDS: Insulin LISPRO 300 UNITS/3 ML VIAL SQ SCH ×5 (00:21→23:26)
[2019-07-14] MEDS: 0.9 % Sodium Chloride 1,000 ML IVC SCH ×2 (00:50→10:34)
[2019-07-14 07:04] LABS: Basophils # 0.1 K/mcL (0.0-0.2); Basophils % 0.4 %; Eosinophils # 0.1 K/mcL (0.0-0.6); Eosinophils % 0.2 %; Immature Granulocytes % 2.2 % (0-4); Lymphocytes # 2.9 K/mcL (0.6-4.6); Lymphocytes % 11.9 %; Mean Corpuscular HGB Conc 32.4 g/dL (31.6-35.5); Mean Corpuscular Hemoglobin 32.1 pg (28.0-33.3); Mean Corpuscular Volume 98.9 fL (83.0-100.0); Mean Platelet Volume 10.9 fL (9.4-12.4); Monocytes # 1.3 K/mcL (0.0-1.3); Monocytes % 5.6 %; Neutrophils # 19.2 K/mcL (1.6-8.9); Platelet Count 186 K/mcL (140-400); Red Blood Count 3.74 M/mcL (4.19-5.50); Red Cell Distribution Width 13.3 % (11.5-14.5); Segmented Neutrophils % 79.7 %; White Blood Count 24.1 K/mcL (4.3-11.1)
[2019-07-14 07:21] LABS: Calcium 8.5 mg/dL (8.6-10.3); Potassium 4.3 mEq/L (3.5-5.1)
[2019-07-14] MEDS: Ipratropium/Albuterol Neb 3 ML IH PRN ×2 (11:55→20:01)
[2019-07-14] MEDS: MethylPREDNISolone 40 MG/ML VIAL IVP SCH ×2 (12:37→18:14)
[2019-07-15] LABS: Bilirubin,Urine Negative (Negative); Blood,Urine Small (Negative); Clarity,Urine Clear (Clear); Color,Urine Yellow (Yellow); Glucose,Urine (UA) >=1000 mg/dL (Normal); Ketones,Urine Trace mg/dL (Negative); Leukocyte Esterase,Urine Negative (Negative); Nitrite,Urine Negative (Negative); Protein,Urine 30 mg/dL (Neg-Trace); Specific Gravity,Urine 1.023 (1.010-1.025); Urobilinogen,Urine Normal (Normal)
[2019-07-15 00:01] LABS: Bacteria,Urine None Seen per hpf (None-Few); Hyaline Casts,Urine None Seen per lpf (None-Few); Squamous Epithelial Cell,Urine Many per lpf (None-Few)
[2019-07-15 03:12] LABS: Basophils # 0.1 K/mcL (0.0-0.2); Basophils % 0.3 %; Hemoglobin 11.3 g/dL (12.9-16.9); Immature Granulocytes % 2.1 % (0-4); Lymphocytes % 5.3 %; Mean Corpuscular HGB Conc 33.2 g/dL (31.6-35.5); Mean Corpuscular Hemoglobin 31.8 pg (28.0-33.3); Mean Corpuscular Volume 95.8 fL (83.0-100.0); Mean Platelet Volume 10.6 fL (9.4-12.4); Monocytes # 0.6 K/mcL (0.0-1.3); Monocytes % 3.2 %; Neutrophils # 17.6 K/mcL (1.6-8.9); Platelet Count 179 K/mcL (140-400); Red Blood Count 3.55 M/mcL (4.19-5.50); Red Cell Distribution Width 13.2 % (11.5-14.5); Segmented Neutrophils % 89.1 %; White Blood Count 19.7 K/mcL (4.3-11.1)
[2019-07-15 03:29] LABS: Calcium 8.3 mg/dL (8.6-10.3); Potassium 4.6 mEq/L (3.5-5.1)
[2019-07-15] MEDS: MethylPREDNISolone 40 MG/ML VIAL IVP SCH ×2 (06:00→17:51)
[2019-07-15] MEDS: Insulin LISPRO 300 UNITS/3 ML VIAL SQ SCH ×4 (07:48→20:43)
[2019-07-15] MEDS ORDERED: *HR* Propofol 200 MG/20 ML VIAL IVP ONE ×2 (07:50→09:08)
[2019-07-15] MEDS ORDERED: *HR* Etomidate 40 MG/20 ML VIAL IVP ONE (07:50)
[2019-07-15] MEDS ORDERED: Lidocaine -MPF 2% 2 ML VIAL ONE (07:52)
[2019-07-15] MEDS ORDERED: Simethicone 40 MG/0.6 ML MLS IR ONE (08:15)
[2019-07-16] MEDS: MethylPREDNISolone 40 MG/ML VIAL IVP SCH (05:59)
[2019-07-16 06:25] LABS: ABG Base Excess -6 mEq/L (-2 to 3); ABG HCO3 15 mEq/L (21-27); ABG Oxygen Saturation 97 % (95-98); ABG PCO2 20 mmHg (35-45); ABG PH 7.48 pH Units (7.32-7.45); ABG PO2 78 mmHg (85-104); ABG TCO2 16 mEq/L (20-26); Blood Gas Modality BiLevel
[2019-07-16] MEDS: Levalbuterol Neb 1.25 MG/3 ML IH SCH ×4 (06:38→21:43)
[2019-07-16] MEDS ORDERED: Morphine Sulfate 2 MG/ML SYRINGE IVP PRN (06:49)
[2019-07-16] MEDS ORDERED: 0.9 % Sodium Chloride 1,000 ML IVC ONE (07:58)
[2019-07-16] MEDS ORDERED: Amiodarone 300 MG in D5% in Water 100 ML IVPB ONE (08:45)
[2019-07-16 08:46] LABS: Calcium 8.8 mg/dL (8.6-10.3); Phosphorous 3.9 mg/dL (2.7-4.5); Potassium 4.7 mEq/L (3.5-5.1)
[2019-07-16 08:59] LABS: Thyroid Stimulating Hormone 2.709 mcIU/mL (0.340-5.600)
[2019-07-16] MEDS: Insulin LISPRO 300 UNITS/3 ML VIAL SQ SCH ×2 (09:10→23:03)
[2019-07-16] MEDS ORDERED: Amiodarone Premix 360 MG/200 ML BAG IVC ONE (09:29)
[2019-07-16] MEDS ORDERED: Amiodarone Premix 360 MG/200 ML BAG IVC SCH (09:30)
[2019-07-16 10:07] LABS: Nucleated Red Blood Cells 0.1 /100 WBC (0)
[2019-07-16 10:08] LABS: Basophils # 0.1 K/mcL (0.0-0.2); Basophils % 0.3 %; Hematocrit 36.7 % (37.5-50.1); Hemoglobin 11.8 g/dL (12.9-16.9); Lymphocytes # 0.5 K/mcL (0.6-4.6); Mean Corpuscular HGB Conc 32.2 g/dL (31.6-35.5); Monocytes % 3.7 %; Neutrophils # 24.4 K/mcL (1.6-8.9); Platelet Count 175 K/mcL (140-400); Red Blood Count 3.58 M/mcL (4.19-5.50); Red Cell Distribution Width 14.4 % (11.5-14.5); White Blood Count 26.2 K/mcL (4.3-11.1)
[2019-07-16 10:19] LABS: Mean Corpuscular Volume 102.5 fL (83.0-100.0)
[2019-07-16] MEDS ORDERED: Piperacillin/Tazobactam 3.375 GM in 0.9 % Sodium Chloride Mini Bag 100 ML IVPB SCH (12:32)
[2019-07-16] MEDS ORDERED: Perflutren Lipid Microsphere 1.3 ML in 0.9 % Sodium Chloride 8.7 ML IVP ONE (14:03)
[2019-07-16] MEDS ORDERED: Sodium Bicarbonate 75 MEQ in 0.45 % Sodium Chloride 1,000 ML IVC SCH ×2 (14:45→16:45)
[2019-07-16] MEDS ORDERED: Heparin 1,000 UNITS/500 mL 500 ML ONE (15:24)
[2019-07-16 15:41] LABS: INR 1.3; Prothrombin Time 15.2 Seconds (9.4-12.1)
[2019-07-16 15:50] LABS: Calcium 7.9 mg/dL (8.6-10.3); Complement C3 82 mg/dL (87-200); Potassium 4.8 mEq/L (3.5-5.1)
[2019-07-16 15:51] LABS: Magnesium 1.9 mg/dL (1.6-2.6); Phosphorous 4.6 mg/dL (2.7-4.5)
[2019-07-16 16:02] LABS: Troponin I 0.29 ng/mL (< 0.04)
[2019-07-16] MEDS ORDERED: Isovue-300 50ML VIAL IVP ONE (16:04)
[2019-07-16 16:46] LABS: Rheumatoid Factor < 10 IU/mL (Less than 14)
[2019-07-16] MEDS ORDERED: *HR* FentaNYL (PF) 100 MCG/2 ML VIAL ONE ×3 (17:10→19:40)
[2019-07-16] MEDS ORDERED: Lidocaine -MPF 1% 5 ML AMPUL ONE (17:11)
[2019-07-16] MEDS ORDERED: Dexamethasone 4 MG/ML VIAL ONE (17:11)
[2019-07-16] MEDS ORDERED: Ondansetron 4 MG/2 ML VIAL ONE (17:11)
[2019-07-16] MEDS ORDERED: *HR* Rocuronium Bromide 50 MG/5 ML VIAL ONE (17:11)
[2019-07-16] MEDS ORDERED: *HR* Propofol 200 MG/20 ML VIAL IVP ONE (17:11)
[2019-07-16 17:14] LABS: Albumin 2.7 g/dL (3.5-5.7); Albumin/Globulin Ratio 1.2 (1.1-2.2); Bilirubin,Direct 0.3 mg/dL (0.0-0.2); Bilirubin,Indirect 0.4 mg/dL (0.0-1.0); Bilirubin,Total 0.7 mg/dL (0.3-1.0); Globulin 2.3 g/dL (2.4-3.5)
[2019-07-16 17:15] LABS: Vitamin D 25 Hydroxy 41 ng/mL (30-80)
[2019-07-16] MEDS ORDERED: *HR* Norepinephrine 4 MG/4 ML VIAL IVC ONE (17:29)
[2019-07-16] MEDS ORDERED: D5% in 0.9% NACL 1,000 ML IVC ONE (17:54)
[2019-07-16] MEDS ORDERED: D5% in Water 0 ML ONE (17:54)
[2019-07-16] MEDS ORDERED: Insulin LISPRO 300 UNITS/3 ML VIAL SQ SCH ×2 (18:00)
[2019-07-16] MEDS ORDERED: EPINEPHrine 1 MG/ML VIAL ONE (18:21)
[2019-07-16] MEDS ORDERED: Albumin Human 5% 25.0 GM/500 ML VIAL ONE (19:15)
[2019-07-16] MEDS ORDERED: *HR* Midazolam HCl 2 MG/2 ML VIAL ONE ×2 (19:27→20:00)
[2019-07-16] MEDS ORDERED: *HR* PHENYLEPHRINE 1,000 MCG/10 ML SYRINGE IVP ONE (19:37)
[2019-07-16 19:53] LABS: ABG Base Excess -9 mEq/L (-2 to 3); ABG HCO3 20 mEq/L (21-27); ABG Oxygen Saturation 94 % (95-98); ABG PCO2 57 mmHg (35-45); ABG PH 7.16 pH Units (7.32-7.45); ABG PO2 90 mmHg (85-104); ABG TCO2 22 mEq/L (20-26); Blood Gas VT 500 cc
[2019-07-16] MEDS ORDERED: Sodium Bicarbonate 50 MEQ/50 ML VIAL ONE (20:05)
[2019-07-16] MEDS ORDERED: Ondansetron 4 MG/2 ML VIAL IVP PRN (20:58)
[2019-07-16] MEDS ORDERED: D5% in Water 1,000 ML IVC PRN (20:58)
[2019-07-16] MEDS ORDERED: Dextrose Gel 15 GM/37.5 ML TUBE PO PRN ×2 (20:58)
[2019-07-16] MEDS ORDERED: Naloxone 0.4 MG/ML INJ IVP PRN (20:58)
[2019-07-16] MEDS ORDERED: *HR* Dextrose 50 % in Water (Syg) 50 ML SYRINGE IVP PRN (20:58)
[2019-07-16] MEDS: Norepinephrine 4 MG in 0.9 % Sodium Chloride 250 ML IVC SCH (21:00)
[2019-07-16] MEDS ORDERED: Norepinephrine 4 MG in 0.9 % Sodium Chloride 250 ML IVC SCH (21:00)
[2019-07-16] MEDS: Amiodarone Premix 360 MG/200 ML BAG IVC SCH (22:15)
[2019-07-16] MEDS: Fluconazole 400 MG/200 ML 400 MG/200 ML BAG IVPB SCH (22:15)
[2019-07-16] MEDS: FentaNYL (PF) 1,000 MCG in 0.9 % Sodium Chloride 80 ML IVC SCH (23:02)
[2019-07-16] MEDS: Piperacillin/Tazobactam 3.375 GM in 0.9 % Sodium Chloride Mini Bag 100 ML IVPB SCH (23:50)
[2019-07-17 01:16] LABS: ABG Base Excess -3 mEq/L (-2 to 3); ABG HCO3 24 mEq/L (21-27); ABG Oxygen Saturation 95 % (95-98); ABG PCO2 49 mmHg (35-45); ABG PH 7.29 pH Units (7.32-7.45); ABG PO2 87 mmHg (85-104); ABG TCO2 25 mEq/L (20-26); Blood Gas Modality ASSIST CONTROL; Blood Gas VT 500 cc
[2019-07-17] MEDS: Levalbuterol Neb 1.25 MG/3 ML IH SCH ×4 (03:39→21:29)
[2019-07-17 03:47] LABS: Hematocrit 27.3 % (37.5-50.1); Immature Platelets 6.2 % (1.1-6.1); Mean Corpuscular Hemoglobin 32.8 pg (28.0-33.3); Mean Corpuscular Volume 99.6 fL (83.0-100.0); Mean Platelet Volume 11.4 fL (9.4-12.4); Nucleated Red Blood Cells 0.1 /100 WBC (0); Platelet Count 161 K/mcL (140-400); Red Blood Count 2.74 M/mcL (4.19-5.50); Red Cell Distribution Width 14.6 % (11.5-14.5); White Blood Count 24.8 K/mcL (4.3-11.1)
[2019-07-17 03:56] LABS: Calcium 8.4 mg/dL (8.6-10.3); Potassium 4.7 mEq/L (3.5-5.1)
[2019-07-17 03:57] LABS: ABG Base Excess -2 mEq/L (-2 to 3); ABG HCO3 24 mEq/L (21-27); ABG Oxygen Saturation 90 % (95-98); ABG PCO2 47 mmHg (35-45); ABG PH 7.32 pH Units (7.32-7.45); ABG PO2 63 mmHg (85-104); ABG TCO2 26 mEq/L (20-26); Blood Gas Modality ASSIST CONTROL; Blood Gas VT 500 cc
[2019-07-17] MEDS: Sodium Bicarbonate 75 MEQ in 0.45 % Sodium Chloride 1,000 ML IVC SCH ×2 (04:01→07:51)
[2019-07-17 04:33] LABS: Neutrophils # 23.8 K/mcL (1.6-8.9); Platelet Estimate Normal (Normal)
[2019-07-17 04:34] LABS: Toxic Granulation Present (Not Present)
[2019-07-17] MEDS: Insulin LISPRO 300 UNITS/3 ML VIAL SQ SCH ×5 (05:01→23:59)
[2019-07-17] MEDS ORDERED: MethylPREDNISolone 40 MG/ML VIAL IVP SCH (06:00)
[2019-07-17] MEDS: Fluconazole 400 MG/200 ML 400 MG/200 ML BAG IVPB SCH (08:18)
[2019-07-17] MEDS: Piperacillin/Tazobactam 3.375 GM in 0.9 % Sodium Chloride Mini Bag 100 ML IVPB SCH ×3 (08:18→23:59)
[2019-07-17] MEDS: Norepinephrine 4 MG in 0.9 % Sodium Chloride 250 ML IVC SCH (08:19)
[2019-07-17] MEDS ORDERED: *HR* Heparin 5,000 UNIT/ML VIAL CRRT PRN (09:32)
[2019-07-17] MEDS ORDERED: 0.9 % Sodium Chloride 1,000 ML PRIME SCH (09:45)
[2019-07-17] MEDS ORDERED: *HR* Heparin 5,000 UNIT/ML VIAL IVP PRN ×2 (11:30)
[2019-07-17] MEDS ORDERED: *HR* Heparin 5,000 UNIT/ML VIAL ONE (11:35)
[2019-07-17] MEDS: Amiodarone Premix 360 MG/200 ML BAG IVC SCH ×2 (11:40→22:50)
[2019-07-17 12:20] LABS: Magnesium 1.8 mg/dL (1.6-2.6); Phosphorous 5.4 mg/dL (2.7-4.5)
[2019-07-17] MEDS ORDERED: D10% in Water 500 ML IVC PRN (12:44)
[2019-07-17] MEDS ORDERED: Vancomycin 1 EACH in 0.9 % Sodium Chloride 250 ML IVPB SCH (13:00)
[2019-07-17] MEDS: PrismaSATE BGK 4/2.5 5,000 ML CRRT SCH ×6 (14:29→22:49)
[2019-07-17] MEDS: Heparin 25,000 UNIT/250 ML D5W 25,000 UNIT/250 ML IV.SOLN IVC SCH (14:30)
[2019-07-17] MEDS: FentaNYL (PF) 1,000 MCG in 0.9 % Sodium Chloride 80 ML IVC SCH (14:32)
[2019-07-17 15:55] LABS: Hematocrit 27.2 % (37.5-50.1); Hemoglobin 8.7 g/dL (12.9-16.9); Mean Corpuscular Hemoglobin 32.3 pg (28.0-33.3); Mean Corpuscular Volume 101.1 fL (83.0-100.0); Mean Platelet Volume 11.3 fL (9.4-12.4); Platelet Count 129 K/mcL (140-400); Red Blood Count 2.69 M/mcL (4.19-5.50); Red Cell Distribution Width 14.9 % (11.5-14.5); White Blood Count 22.5 K/mcL (4.3-11.1)
[2019-07-17 16:29] LABS: ABG Base Excess -4 mEq/L (-2 to 3); ABG HCO3 23 mEq/L (21-27); ABG Oxygen Saturation 95 % (95-98); ABG PCO2 46 mmHg (35-45); ABG PO2 84 mmHg (85-104); ABG TCO2 24 mEq/L (20-26); Blood Gas Modality CPAP/PS; Blood Gas Pressure Support 5 cm H2O
[2019-07-17 16:31] LABS: Heparin anti-factor XA UFH 0.42 IU/mL (0.30-0.70); INR 1.6; Prothrombin Time 18.1 Seconds (9.4-12.1)
[2019-07-17 16:41] LABS: Hematocrit 30.8 % (37.5-50.1)
[2019-07-17] MEDS: Pantoprazole 40 MG VIAL IVP SCH (16:58)
[2019-07-17] MEDS ORDERED: Clinimix 5%-20% SOLUTION 2,000 ML with MVI, adult with vitamin K 10 ML, Sodium Acetat... IVC SCH (17:00)
[2019-07-17 17:31] LABS: Calcium 8.1 mg/dL (8.6-10.3)
[2019-07-18] MEDS: PrismaSATE BGK 4/2.5 5,000 ML CRRT SCH ×10 (02:50→23:41)
[2019-07-18] MEDS: Levalbuterol Neb 1.25 MG/3 ML IH SCH ×4 (03:07→21:57)
[2019-07-18] MEDS: Insulin LISPRO 300 UNITS/3 ML VIAL SQ SCH ×6 (04:05→23:59)
[2019-07-18 04:26] LABS: Nucleated Red Blood Cells 0.1 /100 WBC (0); Red Cell Distribution Width 14.9 % (11.5-14.5)
[2019-07-18 04:27] LABS: Basophils # 0.1 K/mcL (0.0-0.2); Basophils % 0.3 %; Hematocrit 27.5 % (37.5-50.1); Hemoglobin 8.9 g/dL (12.9-16.9); Immature Granulocytes % 2.9 % (0-4); Lymphocytes # 0.7 K/mcL (0.6-4.6); Lymphocytes % 2.1 %; Mean Corpuscular HGB Conc 32.4 g/dL (31.6-35.5); Mean Corpuscular Hemoglobin 33.1 pg (28.0-33.3); Mean Corpuscular Volume 102.2 fL (83.0-100.0); Mean Platelet Volume 11.1 fL (9.4-12.4); Monocytes # 0.7 K/mcL (0.0-1.3); Platelet Count 143 K/mcL (140-400); Red Blood Count 2.69 M/mcL (4.19-5.50); Segmented Neutrophils % 92.7 %
[2019-07-18 04:29] LABS: Neutrophils # 31.3 K/mcL (1.6-8.9)
[2019-07-18 04:30] LABS: White Blood Count 33.8 K/mcL (4.3-11.1)
[2019-07-18] MEDS: FentaNYL (PF) 1,000 MCG in 0.9 % Sodium Chloride 80 ML IVC SCH ×2 (04:45→18:57)
[2019-07-18 04:50] LABS: ABG Base Excess -2 mEq/L (-2 to 3); ABG HCO3 25 mEq/L (21-27); ABG Oxygen Saturation 92 % (95-98); ABG PCO2 57 mmHg (35-45); ABG PH 7.26 pH Units (7.32-7.45); ABG PO2 76 mmHg (85-104); ABG TCO2 27 mEq/L (20-26); Blood Gas VT 500 cc
[2019-07-18] MEDS: Pantoprazole 40 MG VIAL IVP SCH ×2 (05:04→17:35)
[2019-07-18 05:06] LABS: Platelet Estimate Normal (Normal)
[2019-07-18 05:32] LABS: Magnesium 2.2 mg/dL (1.6-2.6); Phosphorous 3.1 mg/dL (2.7-4.5)
[2019-07-18 05:33] LABS: Potassium 4.8 mEq/L (3.5-5.1)
[2019-07-18] MEDS ORDERED: Artificial Tears SOLN 15 ML BOTTLE BOTH EYES PRN (07:48)
[2019-07-18] MEDS: MethylPREDNISolone 40 MG/ML VIAL IVP SCH (08:05)
[2019-07-18] MEDS: Piperacillin/Tazobactam 3.375 GM in 0.9 % Sodium Chloride Mini Bag 100 ML IVPB SCH ×3 (08:06→23:58)
[2019-07-18] MEDS: Fluconazole 400 MG/200 ML 400 MG/200 ML BAG IVPB SCH (08:06)
[2019-07-18 08:26] LABS: mecA Methicillin-Resist Gene DETECTED (Not Detect)
[2019-07-18] MEDS: Artificial Tears SOLN 15 ML BOTTLE BOTH EYES SCH ×5 (08:26→23:58)
[2019-07-18 08:27] LABS: Acinetobacter baumannii by PCR Not Detected (Not Detect); Candida albicans by PCR Not Detected (Not Detect); Candida glabrata by PCR Not Detected (Not Detect); Candida krusei by PCR Not Detected (Not Detect); Candida parapsilosis by PCR Not Detected (Not Detect); Candida tropicalis by PCR Not Detected (Not Detect); Enterobacter cloacae Cmplx PCR Not Detected (Not Detect); Enterobacteriaceae by PCR Not Detected (Not Detect); Enterococcus by PCR Not Detected (Not Detect); Escherichia coli by PCR Not Detected (Not Detect); Klebsiella oxytoca by PCR Not Detected (Not Detect); Klebsiella pneumoniae by PCR Not Detected (Not Detect); Proteus by PCR Not Detected (Not Detect); Pseudomonas aeruginosa by PCR Not Detected (Not Detect); Serratia marcescens by PCR Not Detected (Not Detect); Staphylococcus aureus by PCR DETECTED (Not Detect); Streptococcus agalactiae(B)PCR Not Detected (Not Detect); Streptococcus by PCR Not Detected (Not Detect); Streptococcus pneumoniae PCR Not Detected (Not Detect); Streptococcus pyogenes (A) PCR Not Detected (Not Detect)
[2019-07-18 08:28] LABS: Adenovirus Not Detected (Not Detect); Bordetella Pertussis Not Detected (Not Detect); Chlamydophila pneumoniae Not Detected (Not Detect); Coronavirus 229E Not Detected (Not Detect); Coronavirus HKU1 Not Detected (Not Detect); Coronavirus NL63 Not Detected (Not Detect); Coronavirus OC43 Not Detected (Not Detect); Human Metapneumovirus Not Detected (Not Detect); Human Rhinovirus/Enterovirus Not Detected (Not Detect); Influenza A Subtype 2009 H1 Not Detected (Not Detect); Influenza B Not Detected (Not Detect); Mycoplasma pneumoniae Not Detected (Not Detect); Parainfluenza Virus 1 Not Detected (Not Detect); Parainfluenza Virus 2 Not Detected (Not Detect); Parainfluenza Virus 3 Not Detected (Not Detect); Parainfluenza Virus 4 Not Detected (Not Detect); Respiratory Syncytial Virus DETECTED (Not Detect)
[2019-07-18] MEDS: Chlorhexidine Rinse 15 ML MOUTHWASH MM SCH ×2 (09:26→19:47)
[2019-07-18 10:11] LABS: Albumin 2.9 g/dL (3.5-5.7); Albumin/Globulin Ratio 1.2 (1.1-2.2); Bilirubin,Direct 0.4 mg/dL (0.0-0.2); Bilirubin,Indirect 0.2 mg/dL (0.0-1.0); Bilirubin,Total 0.6 mg/dL (0.3-1.0); Globulin 2.4 g/dL (2.4-3.5); Total Protein 5.3 g/dL (6.4-8.9)
[2019-07-18] MEDS: Amiodarone Premix 360 MG/200 ML BAG IVC SCH ×2 (11:00→23:41)
[2019-07-18] MEDS: Heparin 25,000 UNIT/250 ML D5W 25,000 UNIT/250 ML IV.SOLN IVC SCH (14:00)
[2019-07-18] MEDS ORDERED: Clinimix E 5%-15% SOLUTION 2,000 ML with MVI, adult with vitamin K 10 ML IVC SCH (17:00)
[2019-07-18] MEDS: Norepinephrine 4 MG in 0.9 % Sodium Chloride 250 ML IVC SCH (19:57)
[2019-07-19] MEDS: Levalbuterol Neb 1.25 MG/3 ML IH SCH ×4 (03:19→21:44)
[2019-07-19] MEDS: PrismaSATE BGK 4/2.5 5,000 ML CRRT SCH ×6 (03:37→11:49)
[2019-07-19] MEDS: Insulin LISPRO 300 UNITS/3 ML VIAL SQ SCH ×6 (03:38→23:52)
[2019-07-19] MEDS: Artificial Tears SOLN 15 ML BOTTLE BOTH EYES SCH ×6 (03:38→23:53)
[2019-07-19 03:59] LABS: Basophils % 0.2 %
[2019-07-19 04:01] LABS: Basophils # 0.1 K/mcL (0.0-0.2); Hematocrit 25.8 % (37.5-50.1); Hemoglobin 8.4 g/dL (12.9-16.9); Immature Granulocytes % 4.3 % (0-4); Lymphocytes # 0.5 K/mcL (0.6-4.6); Lymphocytes % 1.4 %; Mean Corpuscular HGB Conc 32.6 g/dL (31.6-35.5); Mean Corpuscular Hemoglobin 32.6 pg (28.0-33.3); Mean Platelet Volume 11.8 fL (9.4-12.4); Monocytes % 2.2 %; Nucleated Red Blood Cells 0.4 /100 WBC (0); Platelet Count 129 K/mcL (140-400); Red Blood Count 2.58 M/mcL (4.19-5.50); Segmented Neutrophils % 91.9 %
[2019-07-19 04:02] LABS: Alanine Aminotransferase 472 Units/L (7-52); Albumin 2.6 g/dL (3.5-5.7); Alkaline Phosphatase 134 Units/L (34-104); Aspartate Amino Transferase 177 Units/L (13-39); BUN/Creatinine Ratio 17 (6-26); Bilirubin,Total 0.6 mg/dL (0.3-1.0); Blood Urea Nitrogen 22 mg/dL (8-23); Calcium 7.9 mg/dL (8.6-10.3); Carbon Dioxide 28 mEq/L (23-29); Chloride 103 mEq/L (98-107); Globulin 2.5 g/dL (2.4-3.5); Glucose 197 mg/dL (70-105); Osmolality,Calculated 291 (280-300); Potassium 4.7 mEq/L (3.5-5.1); Sodium 136 mEq/L (136-145); Total Protein 5.1 g/dL (6.4-8.9); eGFR For African Americans > 60 (> 60); eGFR For Non-African Americans 54 (> 60)
[2019-07-19 04:03] LABS: Magnesium 2.4 mg/dL (1.6-2.6); Phosphorous 1.8 mg/dL (2.7-4.5)
[2019-07-19 04:24] LABS: ABG Base Excess 2 mEq/L (-2 to 3); ABG HCO3 30 mEq/L (21-27); ABG Oxygen Saturation 86 % (95-98); ABG PCO2 61 mmHg (35-45); ABG PH 7.29 pH Units (7.32-7.45); ABG PO2 59 mmHg (85-104); ABG TCO2 32 mEq/L (20-26); Blood Gas VT 500 cc
[2019-07-19 04:30] LABS: Monocytes # 0.8 K/mcL (0.0-1.3); Neutrophils # 31.2 K/mcL (1.6-8.9); White Blood Count 33.9 K/mcL (4.3-11.1)
[2019-07-19] MEDS: Pantoprazole 40 MG VIAL IVP SCH (05:06)
[2019-07-19 05:16] LABS: Platelet Estimate Slight Decrease (Normal)
[2019-07-19] MEDS: FentaNYL (PF) 1,000 MCG in 0.9 % Sodium Chloride 80 ML IVC SCH ×2 (06:06→21:27)
[2019-07-19] MEDS: Chlorhexidine Rinse 15 ML MOUTHWASH MM SCH ×2 (07:51→20:14)
[2019-07-19] MEDS: Piperacillin/Tazobactam 3.375 GM in 0.9 % Sodium Chloride Mini Bag 100 ML IVPB SCH ×2 (07:52→16:11)
[2019-07-19] MEDS: Fluconazole 400 MG/200 ML 400 MG/200 ML BAG IVPB SCH (07:52)
[2019-07-19] MEDS: MethylPREDNISolone 40 MG/ML VIAL IVP SCH (07:52)
[2019-07-19] MEDS: Norepinephrine 4 MG in 0.9 % Sodium Chloride 250 ML IVC SCH (07:55)
[2019-07-19] MEDS: *HR* Amiodarone 200 MG TABLET PO SCH ×2 (11:20→20:14)
[2019-07-19] MEDS: Insulin DETEMIR 100 UNIT/ML X5UNITS SQ SCH ×2 (11:48→20:14)
[2019-07-19 14:07] LABS: ANA IgG by ELISA NONE DETECTED (None Detected)
[2019-07-19 14:10] LABS: Serine Protease-3 Antibody 1 AU/mL (0-19)
[2019-07-19] MEDS: Heparin 25,000 UNIT/250 ML D5W 25,000 UNIT/250 ML IV.SOLN IVC SCH (15:20)
[2019-07-19] MEDS ORDERED: Clinimix E 5%-15% SOLUTION 2,000 ML, Parenteral Amino Acid 10% 0 ML with MVI, adult wi... IVC SCH ×2 (17:00)
[2019-07-19] MEDS ORDERED: Clinimix E 5%-15% SOLUTION 2,000 ML with MVI, adult with vitamin K 10 ML IVC SCH (17:00)
[2019-07-20] MEDS: Norepinephrine 4 MG in 0.9 % Sodium Chloride 250 ML IVC SCH (01:40)
[2019-07-20] MEDS: FentaNYL (PF) 1,000 MCG in 0.9 % Sodium Chloride 80 ML IVC SCH (03:27)
[2019-07-20] MEDS: Artificial Tears SOLN 15 ML BOTTLE BOTH EYES SCH ×3 (03:29→18:38)
[2019-07-20] MEDS: Insulin LISPRO 300 UNITS/3 ML VIAL SQ SCH ×4 (03:29→18:38)
[2019-07-20 03:40] LABS: Basophils % 0.3 %; Immature Granulocytes % 5.4 % (0-4); Red Cell Distribution Width 15.2 % (11.5-14.5)
[2019-07-20] MEDS: Levalbuterol Neb 1.25 MG/3 ML IH SCH ×3 (03:40→15:29)
[2019-07-20 03:41] LABS: Basophils # 0.1 K/mcL (0.0-0.2); Hemoglobin 7.4 g/dL (12.9-16.9); Lymphocytes # 0.6 K/mcL (0.6-4.6); Lymphocytes % 1.7 %; Mean Corpuscular HGB Conc 32.2 g/dL (31.6-35.5); Mean Corpuscular Hemoglobin 32.7 pg (28.0-33.3); Mean Corpuscular Volume 101.8 fL (83.0-100.0); Mean Platelet Volume 11.1 fL (9.4-12.4); Monocytes # 1.3 K/mcL (0.0-1.3); Monocytes % 3.6 %; Nucleated Red Blood Cells 1.7 /100 WBC (0); Platelet Count 125 K/mcL (140-400); Red Blood Count 2.26 M/mcL (4.19-5.50)
[2019-07-20 03:59] LABS: Neutrophils # 32.1 K/mcL (1.6-8.9)
[2019-07-20 04:00] LABS: White Blood Count 36.1 K/mcL (4.3-11.1)
[2019-07-20] MEDS ORDERED: Piperacillin/Tazobactam 3.375 GM in 0.9 % Sodium Chloride Mini Bag 100 ML IVPB SCH (04:00)
[2019-07-20 04:03] LABS: Albumin 2.7 g/dL (3.5-5.7); Albumin/Globulin Ratio 1.1 (1.1-2.2); Bilirubin,Total 0.5 mg/dL (0.3-1.0); Globulin 2.4 g/dL (2.4-3.5); Potassium 4.9 mEq/L (3.5-5.1); Total Protein 5.1 g/dL (6.4-8.9)
[2019-07-20 04:45] LABS: Platelet Estimate Slight Decrease (Normal)
[2019-07-20 04:55] LABS: ABG Base Excess -1 mEq/L (-2 to 3); ABG HCO3 26 mEq/L (21-27); ABG Oxygen Saturation 100 % (95-98); ABG PCO2 58 mmHg (35-45); ABG PH 7.26 pH Units (7.32-7.45); ABG PO2 222 mmHg (85-104); ABG TCO2 28 mEq/L (20-26); Blood Gas Modality ASSIST CONTROL; Blood Gas VT 500 cc
[2019-07-20] MEDS ORDERED: Fluconazole 200 MG/100 ML 200 MG/100 ML BAG IVPB SCH (09:00)
[2019-07-20] MEDS ORDERED: Pantoprazole 40 MG VIAL IVP SCH (09:00)
[2019-07-20] MEDS: Chlorhexidine Rinse 15 ML MOUTHWASH MM SCH (09:51)
[2019-07-20] MEDS: MethylPREDNISolone 40 MG/ML VIAL IVP SCH (09:51)
[2019-07-20] MEDS: Insulin DETEMIR 100 UNIT/ML X5UNITS SQ SCH (09:54)
[2019-07-20] MEDS: *HR* Amiodarone 200 MG TABLET PO SCH (09:56)
[2019-07-20 12:24] LABS: Magnesium 2.4 mg/dL (1.6-2.6); Phosphorous 4.9 mg/dL (2.7-4.5)
[2019-07-20] MEDS ORDERED: Aminoglycoside Consult 1 EACH MC ONE (13:43)
[2019-07-20] MEDS ORDERED: Scopolamine Patch 1.5 MG PATCH.TD72 TD ONE (13:47)
[2019-07-20] MEDS ORDERED: *HR* LORazepam 2 MG/ML VIAL IVP PRN ×2 (13:47→18:28)
[2019-07-20] MEDS ORDERED: *HR* FentaNYL (PF) 100 MCG/2 ML VIAL IVP PRN ×2 (13:47→18:28)
[2019-07-20 14:41] LABS: Kappa Qnt Free Light Chains 7.59 mg/dL (0.33-1.94); Lambda Qnt Free Light Chains 6.26 mg/dL (0.57-2.63)
[2019-07-20 15:37] VITALS: BP 105/53
[2019-07-20] MEDS ORDERED: Clinimix E 5%-15% SOLUTION 2,000 ML with MVI, adult with vitamin K 10 ML IVC SCH (17:00)
[2019-07-20] MEDS ORDERED: Artificial Tears SOLN 15 ML BOTTLE BOTH EYES PRN (18:28)
[2019-07-20] MEDS ORDERED: FentaNYL (PF) 1,000 MCG in 0.9 % Sodium Chloride 80 ML IVC SCH (18:28)
[2019-07-20] MEDS ORDERED: Atropine Sulfate 1% 40 DROP/2 ML BOTTLE SL PRN (18:35)
[2019-07-20] MEDS ORDERED: Glycopyrrolate 0.2 MG/ML VIAL IVP ONE (18:35)
[2019-07-20] MEDS: Heparin 25,000 UNIT/250 ML D5W 25,000 UNIT/250 ML IV.SOLN IVC SCH (18:37)
[2019-07-20 19:41] LABS: CK-BB (CK isoenzymes) 2 % (0-0); CK-MB (CK isoenzymes) 0 % (0-4); CK-MM (CK-isoenzymes) 98 % (96-100)
[2019-07-21 07:40] LABS: CK Total (Ck Isoenzymes) 158 U/L (20-200)
[2019-07-21] MEDS ORDERED: Atropine Sulfate 1% 40 DROP/2 ML BOTTLE SL PRN (07:50)
[2019-07-21] MEDS ORDERED: Clinimix E 5%-15% SOLUTION 2,000 ML with MVI, adult with vitamin K 10 ML IVC SCH (17:00)
[2019-07-22 03:01] LABS: Alpha 2 Globulin (PEP) 0.83 g/dL (0.48-1.05); Beta Globulin (PEP) 0.54 g/dL (0.48-1.10)
[2019-07-22 10:18] LABS: IFE Reflexed IFE Done; Immunoglobulin A 227 mg/dL (68-408); Immunoglobulin G 707 mg/dL (768-1632); Immunoglobulin M 190 mg/dL (35-263)
== END 2019-07-21 13:44 | disposition expired | DRG 853 ==
LOC: 3ANU 14:03 → EMEROOARM 14:03 → SUATTDRO 19:39 → 3ANU 20:43 → ICNU 07-16 11:33 → SUATTDRO 07-16 15:28 → 2ANU 07-20 18:18
PROVIDERS: ADMIT Family Medicine; ATTEND Internal Medicine
PROC: ENDOCCB (2019-07-15 08:30)